=== PATIENT | male | born 1970 | race Caucasian/White ===

== ENCOUNTER 2016-08-13 13:30 | Inpatient (IN) | payer OTHER ==
[2016-08-13] MEDS ORDERED: ONDANSETRON 4 MG/2 ML VIAL IVPUSH ONE (13:40)
[2016-08-13] MEDS ORDERED: HYDROmorphone HCL CARPU-JECT 1 MG/1 ML DISP.SYRIN IVPB ONE ×2 (13:40→15:26)
[2016-08-13] MEDS ORDERED: SODIUM CHLORIDE 1,000 ML IV SCH ×3 (13:45→20:00)
--- NOTE | 2016-08-13 13:46 | PDOC ---
History of Present Illness <Melia Squires - Last Filed: 08/13/16 17:37> - General History Source: Patient Exam Limitations: No Limitations - History of Present Illness Travel History: No Initial Comments: 08/13/16 13:42 45 y/o male with abdominal pain for 2 weeks, getting worse. Denies fall, trauma or fever. No dysuria. Patient has had diverticulitis in the past and has been hospitalized for this. He started taking Cipro and Flagyl about 10 days ago, and does not feel better. He complains of nausea, but no vomiting. No SOB or hest pain. No back pain. Timing/Duration: reports: constant, getting worse Abdominal Pain Onset Location: reports: LLQ (d) Pain Radiation: reports: no radiation <Gurwinder Haro - Last Filed: 08/13/16 17:41> - General Chief Complaint: Nausea Stated Complaint: ABDOMINAL PAIN WITH NAUSEA Time Seen by Provider: 08/13/16 13:36 Past History <Melia Squires - Last Filed: 08/13/16 17:37> - Past Medical History GI Disorders: Yes (GERD/DIVERTICULITIS) HTN: Yes - Surgical History Appendectomy: Yes Neurologic Surgery: Yes ([facility] FOR 21 DAYS STARTING 01/25/15) - Psycho/Social/Smoking Cessation Hx Anxiety: No Suicidal Ideation: No Smoking Status: Yes Smoking History: Current every day smoker Have you smoked in the past 12 months: Yes Number of Cigarettes Smoked Daily: 2 If you are a former smoker, when did you quit?: JAN 2015 'Breaking Loose' booklet given: 07/23/14 Hx Alcohol Use: No Drug/Substance Use Hx: No Substance Use Type: None Hx Substance Use Treatment: No <Gurwinder Haro - Last Filed: 08/13/16 17:41> - Past Medical History Allergies/Adverse Reactions: Allergies Allergy/AdvReac Type Severity Reaction Status Date / Time No Known Allergies Allergy Verified 08/13/16 13:43 Home Medications: Ambulatory Orders Omeprazole [Prilosec (RX)] 40 mg PO DAILY 03/12/15 Metronidazole [Flagyl] 500 mg PO Q8H #9 tablet 06/07/15 Atomoxetine HCl [Strattera] 60 mg PO DAILY 08/13/16 Ciprofloxacin HCl [Cipro] 500 mg PO DAILY 08/13/16 Gabapentin 800 mg PO HS 08/13/16 Metoprolol Tartrate [Lopressor -] 25 mg PO BID 08/13/16 Review of Systems - Review of Systems Able to Perform ROS?: Yes Is the patient limited French proficient: No Constitutional: No: Chills, Fever, Malaise HEENTM: No: Throat Pain Respiratory: No: Cough, Shortness of Breath Cardiac (ROS): No: Chest Pain, Edema, Palpitations ABD/GI: Yes: Abdominal Distended, Nausea. No: Diarrhea, Vomiting : No: Dysuria Musculoskeletal: No: Back Pain Integumentary: No: Bruising All Other Systems: Reviewed and Negative <Gurwinder Haro - Last Filed: 08/13/16 17:41> *Physical Exam - Vital Signs Last Vital Signs Temp Pulse Resp BP Pulse Ox 98.9 F 73 16 114/80 96 08/13/16 13:31 08/13/16 13:31 08/13/16 13:31 08/13/16 13:31 08/13/16 13:31 <Melia Squires - Last Filed: 08/13/16 17:37> - Physical Exam General Appearance: Yes: Nourished, Appropriately Dressed. No: Apparent Distress HEENT: positive: EOMI, KIRIT, Normal ENT Inspection Neck: positive: Trachea midline, Normal Thyroid, Supple. negative: Tender, Rigid Respiratory/Chest: positive: Lungs Clear, Normal Breath Sounds. negative: Chest Tender, Respiratory Distress, Accessory Muscle Use Cardiovascular: positive: Regular Rhythm, Regular Rate, S1, S2. negative: Edema , JVD Vascular Pulses: Femoral (R): 4+, Femoral (L): 4+, Carotid (R): 4+, Carotid (L) : 4+, Dorsalis-Pedis (R): 4+, Doralis-Pedis (L): 4+ Gastrointestinal/Abdominal: positive: Normal Bowel Sounds, Tender (tenerness in LLQ, no RLQ or mid epigastric tenderness, +BS, no RUQ or LUQ tenderness, no pulsatile mass), Flat, Soft. negative: Organomegaly, Pulsatile Mass, Spleenomegaly Lymphatic: negative: Adenopathy, Tenderness, Other Musculoskeletal: positive: Normal Inspection. 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 NML intact, Fully Oriented, Alert, Normal Mood/ Affect, Normal Response, Motor Strength 5/5 <Gurwinder Haro - Last Filed: 08/13/16 17:41> ED Treatment Course - LABORATORY CBC & Chemistry Diagram: 08/13/16 14:10 08/13/16 14:10 - ADDITIONAL ORDERS Additional order review: Laboratory Results 08/13/16 08/13/16 15:15 14:10 Sodium 131 L Potassium 4.1 Chloride 105 Carbon Dioxide 22 Anion Gap 4 L BUN 11 D Creatinine 1.0 Creat Clearance w eGFR > 60 Random Glucose 105 Calcium 9.1 Total Bilirubin 0.4 D AST 34 D ALT 59 H D Alkaline Phosphatase 49 Total Protein 6.6 Albumin 4.1 D Lipase 30 Urine Color Yellow Urine Appearance Clear Urine pH 5.5 Ur Specific [place] 1.020 Urine Protein Negative Urine Glucose (UA) Negative Urine Ketones Negative Urine Blood Negative Urine Nitrite Negative Urine Bilirubin Negative Urine Urobilinogen 0.2 e.u/dl Ur Leukocyte Esterase Negative 08/13/16 14:10 RBC 5.26 MCV 91.3 MCHC 33.7 RDW 11.8 L MPV 7.7 Neutrophils % 56.0 Lymphocytes % 27.1 D Monocytes % 10.4 H Eosinophils % 5.3 H Basophils % 1.2 - RADIOLOGY Radiograph Interpretation: 08/13/16 16:52 CT/ ABDOMEN AND PELVIS CT WITH CONTRAST Reported by: Dr. Joni Simental Reviewed by: Dr. Gurwinder Haro Impression: The current exam demonstrates mild concentric wall thickening within the mid sigmoid colon which could be on the basis of chronic diverticular disease versus mild subtle residual or recurrent diverticulitis. In comparison to a previous CT exam of 06/02/2015 there has been interval resolution of prominent sigmoid wall edema due to acute diverticulitis with associated resolution of pericolonic edema and fluid. - Medications Given in the ED: ED Medications Discontinued Medications Generic Name Dose Route Start Last Admin Trade Name Freq PRN Reason Stop Dose Admin Hydromorphone HCl 1 mg 08/13/16 13:40 08/13/16 14:15 Dilaudid Injection - IVPB 08/13/16 13:41 1 mg ONCE ONE Administration Hydromorphone HCl 1 mg 08/13/16 15:26 08/13/16 15:29 Dilaudid Injection - IVPB 08/13/16 15:27 1 mg ONCE ONE Administration Ondansetron HCl 4 mg 08/13/16 13:40 08/13/16 14:10 Zofran Injection IVPUSH 08/13/16 13:41 4 mg ONCE ONE Administration <Melia Squires - Last Filed: 08/13/16 17:37> - LABORATORY CBC & Chemistry Diagram: 08/13/16 14:10 08/13/16 14:10 - RADIOLOGY Radiology Studies Ordered: Category Date Time Status ABDOMEN & PELVIS CT WITH CONTR [CT] Stat CT Scan 08/13/16 13:40 Ordered <uGrwinder Haro - Last Filed: 08/13/16 17:41> Progress Note - Progress Note Progress Note: Abdominall pain for 2 weeks, failing on antibiotics. Will check labs. CT abdomen/pelvis <Gurwinder Haro - Last Filed: 08/13/16 17:41> Medical Decision Making - Medical Decision Making 08/13/16 17:[address] Kim Awad at [phone]. yardage caller physician Dr. Ame Landaverde consulted. Admitting to Hospitalist Service. 08/13/16 17:35 Called placed to hospitalist, Dr. Cheri Melgoza. Admitting under the Hospitalist Service for diverticulitis. <Melia Squires - Last Filed: 08/13/16 17:37> *DC/Admit/Observation/Transfer <Melia Squires - Last Filed: 08/13/16 17:37> - Discharge Dispostion Admit: Yes <Gurwinder Haro - Last Filed: 08/13/16 17:41> Diagnosis at time of Disposition: Diverticulitis of intestine Qualifiers: Diverticulitis site: unspecified part of intestinal tract Diverticulitis bleeding: without bleeding Diverticulitis complication: without perforation or abscess Qualified Code(s): K57.92 - Diverticulitis of intestine, part unspecified, without perforation or abscess without bleeding - Discharge Dispostion Condition at time of disposition: Good
[2016-08-13] MEDS ORDERED: ONDANSETRON 4 MG/2 ML VIAL ONE (13:54)
[2016-08-13] MEDS ORDERED: HYDROmorphone HCL CARPU-JECT 2 MG/1 ML DISP.SYRIN ONE ×2 (13:54→18:23)
[2016-08-13 14:26] LABS: BASOPHIL 1.2 % (0-2.0); EOSINOPHIL 5.3 % (0-4.5); MCH 30.8 pg (25.7-33.7); MCHC 33.7 g/dl (32.0-35.9); MEAN CELL VOLUME 91.3 fl (80-96); MEAN PLT VOLUME 7.7 fl (7.5-11.1); PLATELET COUNT 223 K/MM3 (134-434); RDW 11.8 % (11.9-15.9); WHITE BLOOD COUNT 5.8 K/mm3 (4.0-10.0)
[2016-08-13 14:56] LABS: ALBUMIN 4.1 g/dl (3.5-5.0); ALK PHOS 49 U/L (32-92); ANION GAP 4 (8-16); BILIRUBIN,TOTAL 0.4 mg/dl (0.2-1.0); CALCIUM 9.1 mg/dl (8.4-10.2); CO2 22 mmol/L (22-28); GLUCOSE,RANDOM 105 mg/dl (74-106); SGOT/AST 34 U/L (10-42); SGPT/ALT 59 U/L (10-40); TOT PROT 6.6 g/dl (6.4-8.3)
[2016-08-13 15:25] LABS: PH,URINE 5.5 (4.5-8); URINE APPEARANCE Clear; URINE BILIRUBIN Negative (NEGATIVE); URINE BLOOD Negative (NEGATIVE); URINE COLOR YELLOW; URINE GLUCOSE (UA) Negative (NEGATIVE); URINE KETONE Negative (NEGATIVE); URINE LEUK ESTERASE Negative (NEGATIVE); URINE NITRITE Negative (NEGATIVE); URINE PROTEIN Negative (NEGATIVE); URINE UROBILINOGEN 0.2 E.U/dl (0.2-1.0)
[2016-08-13] MEDS ORDERED: METRONIDAZOLE 500 MG PREMIXED 100 ML IVPB ONE ×2 (16:57→17:09)
[2016-08-13] MEDS ORDERED: LEVOFLOXACIN 750 MG IVPB 150 ML IVPB ONE (16:57)
[2016-08-13] MEDS ORDERED: PANTOPRAZOLE SODIUM 40 MG in SODIUM CHLORIDE 100 ML IVPB STA (18:06)
[2016-08-13] MEDS ORDERED: PANTOPRAZOLE SODIUM 40 MG VIAL ONE (18:09)
[2016-08-13] MEDS: HYDROmorphone HCL CARPU-JECT 1 MG/1 ML DISP.SYRIN IVPUSH PRN ×2 (18:25→23:05)
[2016-08-13] MEDS ORDERED: ONDANSETRON 4 MG/2 ML VIAL IVPB PRN (19:51)
[2016-08-13] MEDS ORDERED: ACETAMINOPHEN 325 MG TABLET (FP) PO PRN (19:52)
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
[2016-08-13] MEDS ORDERED: morphine CARPU-JECT 2 MG/1 ML DISP.SYRIN IVPB PRN (21:21)
[2016-08-13 21:22] VITALS: BMI 30.4
[2016-08-13] MEDS ORDERED: NORTRIPTYLINE HCL 25 MG CAPSULE PO SCH (22:00)
[2016-08-13] MEDS ORDERED: GABAPENTIN 400 MG CAPSULE (FP) PO SCH (22:00)
[2016-08-13] MEDS: HEPARIN NA (PORCINE) 5,000 UNITS/ML 1ML VIAL SQ SCH (22:53)
[2016-08-13] MEDS: METOPROLOL TARTRATE 25 MG TABLET (FP) PO SCH (22:54)
[2016-08-14] MEDS: METRONIDAZOLE 500 MG PREMIXED 100 ML IVPB SCH ×3 (01:33→17:06)
[2016-08-14] MEDS ORDERED: METRONIDAZOLE 500 MG PREMIXED 100 ML IVPB SCH (02:00)
[2016-08-14] MEDS: HEPARIN NA (PORCINE) 5,000 UNITS/ML 1ML VIAL SQ SCH (06:22)
--- NOTE | 2016-08-14 08:59 | PN ---
Physical Exam: SUBJECTIVE: Patient seen and examined OBJECTIVE: Vital Signs Period Temp Pulse Resp BP Sys/Martinez Pulse Ox Last 24 Hr 97.8 F-98.6 F 64-69 16-20 117-120/76-84 97-98 GENERAL: The patient is awake, alert, and fully oriented, in no acute distress. HEAD: Normal with no signs of trauma. EYES: PERRL, extraocular movements intact, sclera anicteric, conjunctiva clear. No ptosis. ENT: Ears normal, nares patent, oropharynx clear without exudates, moist mucous membranes. NECK: Trachea midline, full range of motion, supple. LUNGS: Breath sounds equal, clear to auscultation bilaterally, no wheezes, no crackles, no accessory muscle use. HEART: Regular rate and rhythm, S1, S2 without murmur, rub or gallop. ABDOMEN: Soft, nontender, nondistended, normoactive bowel sounds, no guarding, no rebound, no hepatosplenomegaly, no masses. EXTREMITIES: 2+ pulses, warm, well-perfused, no edema. NEUROLOGICAL: Cranial nerves II through XII grossly intact. Normal speech, gait not observed. PSYCH: Normal mood, normal affect. SKIN: Warm, dry, normal turgor, no rashes or lesions noted Laboratory Results - last 24 hr 08/14/16 08:00 Sodium Cancelled Potassium Cancelled Chloride Cancelled Carbon Dioxide Cancelled Anion Gap Cancelled BUN Cancelled Creatinine Cancelled Creat Clearance w eGFR Cancelled Random Glucose Cancelled Calcium Cancelled Total Bilirubin Cancelled AST Cancelled ALT Cancelled Alkaline Phosphatase Cancelled Total Protein Cancelled Albumin Cancelled Active Medications Generic Name Dose Route Start Last Admin Trade Name Shaheed PRN Reason Stop Dose Admin Acetaminophen 650 mg 08/13/16 19:52 Tylenol - PO Q4H PRN FEVER OR PAIN Gabapentin 800 mg 08/13/16 22:00 08/13/16 22:54 Neurontin - PO 800 mg HS CLARI Administration Hydromorphone HCl 1 mg 08/13/16 17:34 08/13/16 23:05 Dilaudid Injection - IVPUSH 1 mg Q4H PRN Administration PAIN Sodium Chloride 1,000 mls @ 125 mls/hr 08/13/16 17:45 08/13/16 18:00 Normal Saline - IV 125 mls/hr ASDIR CLARI Administration Metronidazole 100 mls @ 100 mls/hr 08/14/16 02:00 08/14/16 01:33 Flagyl 500mg Premixed Ivpb - IVPB 100 mls/hr Q8H-IV CLARI Administration Levofloxacin 150 mls @ 150 mls/hr 08/14/16 10:00 Levaquin 750 Mg Premixed Ivpb - IVPB DAILY CLARI Metoprolol Tartrate 25 mg 08/13/16 22:00 08/13/16 22:54 Lopressor - PO 25 mg BID CLARI Administration Morphine Sulfate 1 mg 08/13/16 21:21 Morphine Injection - IVPB Q6H PRN PAIN Non-Formulary Medication 60 mg 08/14/16 10:00 Atomoxetine Hcl [Strattera] PO DAILY CLARI Nortriptyline HCl 75 mg 08/13/16 22:00 08/13/16 22:54 Pamelor - PO 75 mg HS CLARI Administration Ondansetron HCl 4 mg 08/13/16 19:51 Zofran Injection IVPB Q4H PRN NAUSEA AND/OR VOMITING Pantoprazole Sodium 40 mg 08/14/16 10:00 Protonix 40mg Ivpb (Pre-Docked) IVPB DAILY CLARI ASSESSMENT/PLAN:
[2016-08-14] MEDS: METOPROLOL TARTRATE 25 MG TABLET (FP) PO SCH (09:09)
[2016-08-14 09:12] LABS: BASOPHIL 0.5 % (0-2.0); MCH 31.2 pg (25.7-33.7); MCHC 34.4 g/dl (32.0-35.9); MEAN CELL VOLUME 90.6 fl (80-96); NEUTROPHILS 48.1 % (42.8-82.8); PLATELET COUNT 197 K/MM3 (134-434); RDW 11.7 % (11.9-15.9); WHITE BLOOD COUNT 3.8 K/mm3 (4.0-10.0)
[2016-08-14] MEDS ORDERED: PANTOPRAZOLE SODIUM 40 MG/100 ML PRE-DOCKED IVPB SCH (10:00)
[2016-08-14] MEDS ORDERED: LEVOFLOXACIN 750 MG IVPB 150 ML IVPB SCH (10:00)
[2016-08-14] MEDS ORDERED: ATOMOXETINE HCL 60 MG PO SCH (10:00)
[2016-08-14] MEDS ORDERED: PANTOPRAZOLE SODIUM 40 MG in SODIUM CHLORIDE 100 ML IVPB SCH (10:00)
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
--- NOTE | 2016-08-14 10:08 | PN ---
Progress Note (short form) - Note Progress Note: Patient seen and consult dictated. Patient with probable low grade sigmoid diverticulitis which has responded to initial PO and current IV antibiotics. Tolerating PO liquids and denies abdominal pain. +BM No fever/chills. Would slowly advance diet and switch to PO antibiotics. If stable, can discharge home with outpatient followup.
[2016-08-14 11:13] LABS: ALBUMIN 3.6 g/dl (3.5-5.0); ALK PHOS 37 U/L (32-92); ANION GAP 5 (8-16); BILIRUBIN,TOTAL 0.5 mg/dl (0.2-1.0); CALCIUM 8.3 mg/dl (8.4-10.2); CO2 24 mmol/L (22-28); COCKROFT - GAULT 124.62; GLUCOSE,RANDOM 88 mg/dl (74-106); SGOT/AST 29 U/L (10-42); SGPT/ALT 51 U/L (10-40); TOT PROT 5.6 g/dl (6.4-8.3)
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
[2016-08-14] MEDS ORDERED: LACTOBACILLUS ACIDOPHILUS 1 EACH TAB (FP) PO SCH (11:30)
[2016-08-14 14:51] VITALS: BP 119/73; PULSE 84; TEMP 98.9
== END 2016-08-14 18:10 | disposition home or self-care (01) | DRG 244 ==
LOC: SUPCPDRO 13:30 → FER 13:30 → FM/S 18:40
PROVIDERS: ADMIT Internal Medicine; ATTEND Nurse Practitioner Family
DX: K57.32 Diverticulitis of large intestine without perforation or abscess without bleeding (principal); K21.9 Gastro-esophageal reflux disease without esophagitis; F17.210 Nicotine dependence, cigarettes, uncomplicated; F07.81 Postconcussional syndrome; E87.1 Hypo-osmolality and hyponatremia; R51 Headache; R11.0 Nausea; R74.0 Nonspecific elevation of levels of transaminase and lactic acid dehydrogenase [LDH]; G45.4 Transient global amnesia
CPT/HCPCS: 36415; 74177-TC; 76705-TC; 80053; 81003; 83690; 83930; 85025; 99282-25; J1644

== ENCOUNTER 2016-09-27 15:29 | Emergency (ER) | payer OTHER ==
[2016-09-27] MEDS ORDERED: TETRACAINE 0.5% HCL 0.6ML DROPPER.BOTTLE OS ONE (15:50)
[2016-09-27 15:51] VITALS: BP 123/87; PULSE 78; TEMP 98.7; BMI 31.0
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
== END 2016-09-27 16:06 | disposition home or self-care (01) ==
LOC: FER 15:29
DX: T15.92XA Foreign body on external eye, part unspecified, left eye, initial encounter (principal); W20.8XXA Other cause of strike by thrown, projected or falling object, initial encounter; Y93.89 Activity, other specified; Y92.9 Unspecified place or not applicable; F17.210 Nicotine dependence, cigarettes, uncomplicated; I10 Essential (primary) hypertension; Z87.820 Personal history of traumatic brain injury; K21.9 Gastro-esophageal reflux disease without esophagitis
CPT/HCPCS: 99282-25

== ENCOUNTER 2017-07-05 22:52 | Emergency (ER) | payer OTHER ==
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
[2017-07-05 23:10] VITALS: BP 122/63; PULSE 77; TEMP 98.1; BMI 33.2
[2017-07-05] MEDS ORDERED: diazePAM CARPU-JECT 10 MG/2 ML DISP.SYRIN IM STA (23:15)
[2017-07-05] MEDS ORDERED: diazePAM 5 MG TABLET PO ONE ×2 (23:18→23:47)
[2017-07-05] MEDS ORDERED: KETOROLAC TROMETHAMINE 60 MG/2 ML VIAL ONE (23:47)
[2017-07-05] MEDS ORDERED: KETOROLAC TROMETHAMINE 60 MG/2 ML VIAL IM ONE (23:47)
[2017-07-05] MEDS ORDERED: diazePAM 5 MG TABLET ONE (23:48)
== END 2017-07-06 00:11 | disposition home or self-care (01) ==
LOC: FER 22:52
PROC: 3E0233Z Introduction of Anti-inflammatory into Muscle, Percutaneous Approach (ICD-10-PCS; principal; 2017-07-05)
DX: M54.5 Low back pain (principal); G89.29 Other chronic pain; F17.210 Nicotine dependence, cigarettes, uncomplicated; I10 Essential (primary) hypertension; K21.9 Gastro-esophageal reflux disease without esophagitis
CPT/HCPCS: 99282-25

== ENCOUNTER 2017-10-19 07:02 | Emergency (ER) | payer OTHER ==
[2017-10-19 07:18] VITALS: TEMP 98; BMI 31.7
--- NOTE | 2017-10-19 07:36 | PDOC ---
Attending Attestation - Resident Resident Name: Vickey Bennett - ED Attending Attestation I have performed the following: I have examined & evaluated the patient, The case was reviewed & discussed with the resident, I agree w/resident's findings & plan, Exceptions are as noted - HPI HPI: 10/19/17 07:34 46y M hx of recurrent diverticulitis presents with recently discharged from the hosptial yeserday presents with recurrent abdominal pain today. Pt states he was better but not 100% at discharge, was tolerating alot of different types of food, but notes the pain came back after he went home. The pt endorses an pisode of nbnb vomiting w/o f/c. +bm at home on exam pt in no distress, mild LLQ tendernss w/o rebound/guarding. no distension/tympany will obtain blood work flat and upright abd xray to r/o obstruction abd exam seems improved compraed to my previous exam during previous admission will celeste stevens regarding dispo morphine for pain fluids, zofran for symptmatomatic relief - Physicial Exam PE: 10/20/17 07:30 see above - Medical Decision Making 10/19/17 11:12 labs reviewed - unremarkable abd xray reviewed - no signs of obstruction case dw dr. Stevens by Dr. Bennett - recommend pain mangement and if feeling better can fu with him as an outpatient. pt was feeling better, abd was soft minimal LLQ tenderness no rebound/guarding feels comfortable going home and fu with dr. Stevens as an outpatient return precutions were discussed I discussed the physical exam findings, ancillary test results and final diagnoses with the patient. I answered all of the patient's questions. The patient was satisfied with the care received and felt comfortable with the discharge plan and treatment plan. The patient will call their primary care physician within 24 hours to arrange follow-up and will return to the Emergency Department with any new, persistent or worsening symptoms.
[2017-10-19] MEDS ORDERED: HYDROmorphone HCL CARPU-JECT 2 MG/1 ML DISP.SYRIN IVPUSH ONE (07:40)
[2017-10-19] MEDS ORDERED: SODIUM CHLORIDE 1,000 ML IV STA (07:40)
[2017-10-19] MEDS ORDERED: HYDROmorphone HCL CARPU-JECT 1 MG/1 ML DISP.SYRIN IVPUSH ONE (07:42)
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
[2017-10-19] MEDS ORDERED: morphine CARPU-JECT 10 MG/1 ML DISP.SYRIN IVPUSH ONE (07:57)
[2017-10-19] MEDS ORDERED: MORPHINE SULFATE 10 MG/1 ML *VIAL ONE (08:07)
[2017-10-19 08:36] LABS: HEMOGLOBIN 16.1 GM/dL (11.7-16.9); MCHC 34.3 g/dl (32.0-35.9); MEAN CELL VOLUME 90.2 fl (80-96); MEAN PLT VOLUME 8.4 fl (7.5-11.1); PLATELET COUNT 256 K/MM3 (134-434); RBC 5.21 M/mm3 (4.00-5.60); WHITE BLOOD COUNT 9.6 K/mm3 (4.0-10.0)
[2017-10-19 08:47] LABS: URINE APPEARANCE CLEAR; URINE BILIRUBIN NEGATIVE (<2.0 mg/dL); URINE BLOOD NEGATIVE (NEGATIVE); URINE COLOR AMBER; URINE GLUCOSE (UA) NEGATIVE (NEGATIVE); URINE KETONE NEGATIVE (NEGATIVE); URINE LEUK ESTERASE 1+ (NEGATIVE); URINE NITRITE NEGATIVE (NEGATIVE); URINE PROTEIN NEGATIVE (NEGATIVE); URINE UROBILINOGEN NEGATIVE mg/dL (0.2-1.0)
[2017-10-19 08:53] LABS: EPI CELLS RARE /HPF (FEW); URINE MUCUS MANY
[2017-10-19 08:57] LABS: INR 1.28 (0.82-1.09); PROTHROMBIN TIME (PATIENT) 14.5 SEC (9.7-13.0)
[2017-10-19 09:10] LABS: CHLORIDE 107 mmol/L (98-107); SODIUM 139 mmol/L (136-145)
[2017-10-19 09:34] LABS: ALBUMIN 3.6 g/dl (3.4-5.0); ALK PHOS 59 U/L (45-117); ANION GAP 10 (8-16); BILIRUBIN,TOTAL 0.4 mg/dL (0.2-1.0); BLOOD UREA NITROGEN 7 mg/dL (7-18); CALCIUM 8.8 mg/dL (8.5-10.1); CO2 22 mmol/L (21-32); GLUCOSE,RANDOM 119 mg/dL (74-106); SGOT/AST 58 U/L (15-37); SGPT/ALT 109 U/L (12-78); TOT PROT 7.1 g/dl (6.4-8.2)
[2017-10-19 10:13] VITALS: BP 130/76; PULSE 80
== END 2017-10-19 11:52 | disposition home or self-care (01) ==
LOC: JER 07:02
PROC: 3E0337Z Introduction of Electrolytic and Water Balance Substance into Peripheral Vein, Percutaneous Approach (ICD-10-PCS; principal; 2017-10-19)
PROC: 3E033NZ Introduction of Analgesics, Hypnotics, Sedatives into Peripheral Vein, Percutaneous Approach (ICD-10-PCS; 2017-10-19)
PROC: 3E033NZ Introduction of Analgesics, Hypnotics, Sedatives into Peripheral Vein, Percutaneous Approach (ICD-10-PCS; 2017-10-19)
DX: K57.30 Diverticulosis of large intestine without perforation or abscess without bleeding (principal); K21.9 Gastro-esophageal reflux disease without esophagitis; I10 Essential (primary) hypertension; Z87.820 Personal history of traumatic brain injury
CPT/HCPCS: 36415; 74019-TC-FY; 80053; 81003; 81015; 85027; 85610; 86850; 86900; 86901; 87086; 96361; 96374; 96375; 99283-25; J7030

== ENCOUNTER 2017-12-15 22:59 | Emergency (ER) | payer OTHER ==
[2017-12-15] MEDS ORDERED: KETOROLAC TROMETHAMINE 60 MG/2 ML VIAL IM ONE (23:07)
[2017-12-15] MEDS ORDERED: KETOROLAC TROMETHAMINE 60 MG/2 ML VIAL ONE (23:10)
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
[2017-12-15 23:19] VITALS: BP 121/82; PULSE 78; TEMP 98.9; BMI 31.6
[2017-12-16] MEDS ORDERED: DICYCLOMINE HCL 20 MG TABLET PO ONE (00:09)
[2017-12-16] MEDS ORDERED: MAG HYDROX/AL HYDROX/SIMETH 30 ML UNIT-DOSE CUP PO ONE (00:09)
[2017-12-16] MEDS ORDERED: MAG HYDROX/AL HYDROX/SIMETH 30 ML UNIT-DOSE CUP ONE (00:10)
[2017-12-16] MEDS ORDERED: DICYCLOMINE HCL 10 MG CAPSULE ONE (00:10)
== END 2017-12-16 00:57 | disposition home or self-care (01) ==
LOC: FER 22:59
PROC: 3E0233Z Introduction of Anti-inflammatory into Muscle, Percutaneous Approach (ICD-10-PCS; principal; 2017-12-15)
DX: R14.1 Gas pain (principal); F17.210 Nicotine dependence, cigarettes, uncomplicated; I10 Essential (primary) hypertension; K21.9 Gastro-esophageal reflux disease without esophagitis
CPT/HCPCS: 74176; 99282-25

== ENCOUNTER 2018-02-04 05:41 | Inpatient (IN) | payer OTHER ==
[2018-02-01 10:11] VITALS: BMI 30.8
[2018-02-04] MEDS ORDERED: ERTAPENEM SODIUM 1 GM in DEXTROSE 5%-WATER - 50 ML IVPB ONE (10:00)
[2018-02-04] MEDS ORDERED: ERTAPENEM SODIUM 1 GM in SODIUM CHLORIDE 50 ML IVPB ONE (10:01)
--- NOTE | 2018-02-04 12:00 | HP ---
History & Physical Update - History History: No Change - Physical Physical: No Change - Assessment Assessment: No Change - Plan Plan: No Change (For reversal of Hartmans procedure (colo-colostomy); r/b/t/a's d/w him and informed consent obtained.)
[2018-02-04] MEDS ORDERED: MIDAZOLAM HCL 2 MG/2 ML SINGLE DOSE VIAL ONE ×3 (13:00)
[2018-02-04] MEDS ORDERED: ROCURONIUM BROMIDE 50 MG/5 ML VIAL ONE ×4 (13:00→17:11)
[2018-02-04] MEDS ORDERED: PROPOFOL 20 ML ONE ×3 (13:00→17:24)
[2018-02-04] MEDS ORDERED: fentaNYL CITRATE 250 MCG/5 ML VIAL ONE ×4 (13:00→17:12)
[2018-02-04] MEDS ORDERED: LIDOCAINE HCL/PF 2% SDV 5ML VIAL ONE ×2 (13:01→17:23)
[2018-02-04] MEDS ORDERED: ERTAPENEM SODIUM 1 GM VIAL IVPB ONE (13:47)
[2018-02-04] MEDS ORDERED: DEXAMETHASONE SOD PHOSPHATE 4 MG/1 ML VIAL ONE ×3 (13:52→18:38)
[2018-02-04] MEDS ORDERED: LIDOCAINE HCL 2% 100 MG/5 ML DISP.SYRIN ONE (17:23)
[2018-02-04] MEDS ORDERED: KETAMINE HCL 200 MG/20 ML VIAL ONE (17:25)
[2018-02-04] MEDS ORDERED: GLYCOPYRROLATE 0.2 MG/1 ML VIAL ONE (18:36)
[2018-02-04] MEDS ORDERED: KETOROLAC TROMETHAMINE 30 MG/1 ML VIAL ONE (18:36)
[2018-02-04] MEDS ORDERED: NEOSTIGMINE METHYLSULFATE 0.5 MG/ML - 10 ML MDV ONE (18:37)
--- NOTE | 2018-02-04 19:36 | OP ---
Operative Note - Note: Operative Date: 02/04/18 Pre-Operative Diagnosis: Colostomy s/p perforated diverticulitis Operation: Mayorga's Reversal Post-Operative Diagnosis: Same as Pre-op Surgeon: Farhat Griffin Plaster Form Maker: Leeanne Rubio (Meggan) Anesthesiologist/BULB ASSEMBLER: Roman Morejon Anesthesia: General Estimated Blood Loss (mls): 200 Drains & Tubes with Location: CLARITZA Drains, Volume Out (mls): 300 (gill - clear) Fluid Volume Replaced (mls): 3,000 Operative Report Dictated: Yes
[2018-02-04] MEDS ORDERED: ONDANSETRON 4 MG/2 ML VIAL IVPUSH PRN (19:37)
[2018-02-04] MEDS ORDERED: ACETAMINOPHEN 1000 MG/100 ML VIAL (NON FORMULARY) IVPB ONE (19:37)
[2018-02-04] MEDS ORDERED: PATIENT'S OWN MEDICATION (NON-FORMULARY) (Gabapentin [Gabapentin] 800 MG) PO PRN (19:37)
--- NOTE | 2018-02-04 19:37 | SURG ---
Surgery Bowling Alley Mechanic Note Bowling Alley Mechanic: Leeanne Rubio PA-C Date of Service: 02/04/18 Diagnosis: Colostomy s/p perforated diverticulitis Procedure: Mayorga's reversal I was present for the entirety of the operative procedure. For further detail, please refer to operative report. Visit type - Case Type Case Type: Scheduled - New patient This patient is new to me today: Yes Date on this admission: 02/04/18
[2018-02-04] MEDS ORDERED: HYDROmorphone *PCA* 10MG/50ML DISP.SYRIN PCA ONE (19:45)
[2018-02-04] MEDS: LACTATED RINGERS SOLUTION 1,000 ML/1,000 ML INFUS.BAG IV SCH (19:45)
[2018-02-04] MEDS ORDERED: LACTATED RINGERS SOLUTION 1,000 ML IV SCH (19:45)
[2018-02-04] MEDS ORDERED: ACETAMINOPHEN INJECTION 100 ML IVPB ONE (19:45)
[2018-02-04] MEDS: HYDROmorphone *PCA* 10MG/50ML DISP.SYRIN PCA SCH (19:55)
[2018-02-04] MEDS ORDERED: ONDANSETRON 4 MG/2 ML VIAL ONE (20:12)
[2018-02-04] MEDS ORDERED: PT OWN MED DRAWER 7, Y5N ONE (23:10)
[2018-02-04] MEDS: ALPRAZolam 2 MG TABLET PO SCH (23:38)
[2018-02-04] MEDS: NORTRIPTYLINE HCL 25 MG CAPSULE PO SCH (23:44)
[2018-02-05] MEDS: CEFAZOLIN 2 GM/D5W 2 GM/50 ML ML IVPB SCH ×2 (02:27→09:31)
[2018-02-05] MEDS: LACTATED RINGERS SOLUTION 1,000 ML/1,000 ML INFUS.BAG IV SCH ×3 (06:36→23:35)
[2018-02-05] MEDS: HYDROmorphone *PCA* 10MG/50ML DISP.SYRIN PCA SCH (07:49)
[2018-02-05 07:57] LABS: HEMATOCRIT 39.2 % (35.4-49); HEMOGLOBIN 12.9 GM/dL (11.7-16.9); MCH 29.5 pg (25.7-33.7); MEAN CELL VOLUME 89.5 fl (80-96); MEAN PLT VOLUME 8.1 fl (7.5-11.1); PLATELET COUNT 196 K/MM3 (134-434); RBC 4.38 M/mm3 (4.00-5.60); RDW 13.5 % (11.9-15.9); WHITE BLOOD COUNT 13.2 K/mm3 (4.0-10.0)
--- NOTE | 2018-02-05 08:01 | PROC ---
Procedure Note Procedure: POD#1 Pt with complaints of nausea/that resolved. No CP or SOB. Feels hungry. Vital Signs Period Temp Pulse Resp BP Sys/Martinez Pulse Ox Last 24 Hr 98.2 F-99.8 F 64-110 10-20 113-134/64-87 95-100 GEN: A&0x3, NAD ABD: soft, non-distended, inc tenderness LE: no calf tendneress or swelling noted A/P: 47 yo male s/p Lysis of adhesion/hartmans reversal, POD#1 OOB to chair/ambulate NPO/IV hydration
--- NOTE | 2018-02-05 08:07 | PN ---
Progress Note (short form) - Note Progress Note: POD#1 PT with complaints of nausea last pm/resolved now and feels hungry. No CP/SOB. Pain at a 6/10. Vital Signs Period Temp Pulse Resp BP Sys/Martinez Pulse Ox Last 24 Hr 98.2 F-99.8 F 64-110 10-20 113-134/64-87 95-100 gill-750ml clear/yellow urine CLARITZA-40ml serosangrenous GEN: A&0x3, NAD ABD: soft, non-distended, inc tenderness. Midline dressing changed today/ packing removed clean granulation tissue. fascia intact. ostomy site-clean. repacked with wet to dry dressing. LE: no calf tenderness or swelling noted b/l A/P: 47 yo male s/p lysis of adhesion/hartmans continue npo/iv hydration oob and ambulate lovenox for DVT ppx cbc/chem pending Will add IV tylenol x 24 hours for pain control inaddition to [employer]TER discontinue gill /3 D/w. Dr. Griffin
[2018-02-05] MEDS ORDERED: ACETAMINOPHEN 1000 MG/100 ML VIAL (NON FORMULARY) IVPB SCH (08:15)
[2018-02-05 08:32] LABS: ANION GAP 12 MMOL/L (8-16); BLOOD UREA NITROGEN 13 mg/dL (7-18); CALCIUM 8.5 mg/dL (8.5-10.1); CHLORIDE 105 mmol/L (98-107); CO2 24 mmol/L (21-32); GLUCOSE,RANDOM 130 mg/dL (74-106); POTASSIUM 4.1 mmol/L (3.5-5.1); SODIUM 141 mmol/L (136-145)
[2018-02-05] MEDS: ACETAMINOPHEN 1000 MG/100 ML VIAL (NON FORMULARY) IVPB SCH ×2 (08:51→17:19)
[2018-02-05] MEDS ORDERED: ESCITALOPRAM OXALATE 10 MG TABLET (FP) ONE (09:27)
[2018-02-05] MEDS: ESCITALOPRAM OXALATE 20 MG TABLET (FP) PO SCH (09:31)
[2018-02-05] MEDS: ENOXAPARIN NA (PORCINE) 40 MG/0.4 ML DISP.SYRIN SQ SCH (09:31)
[2018-02-05] MEDS: PANTOPRAZOLE 40 MG TABLET (FP) PO SCH (09:31)
[2018-02-05] MEDS: chlorproMAZINE HCL 25 MG TABLET PO SCH ×2 (09:32→21:32)
--- NOTE | 2018-02-05 11:28 | PN ---
Progress Note, Physician Chief Complaint: s/p reversal of marcy's under general anesthesia History of Present Illness: post op day one with associate material handler for pain control - Current Medication List Current Medications: Active Medications Acetaminophen (Ofirmev Injection -) 1,000 mg IVPB Q8H [facility] Stop: 02/06/18 00:46 Last Admin: 02/05/18 08:51 Dose: 1,000 mg Alprazolam (Xanax -) 2 mg PO HS [facility] Last Admin: 02/04/18 23:38 Dose: 2 mg Chlorpromazine HCl (Thorazine -) 50 mg PO BID [facility] Last Admin: 02/05/18 09:32 Dose: 50 mg Enoxaparin Sodium (Lovenox -) 40 mg SQ DAILY [facility] Last Admin: 02/05/18 09:31 Dose: 40 mg Escitalopram Oxalate (Lexapro -) 20 mg PO DAILY [facility] Last Admin: 02/05/18 09:31 Dose: 20 mg Hydromorphone HCl (Dilaudid Production Weigher -) 0 mg TRAVEL REGISTERED NURSE PACU TRAVEL REGISTERED NURSE PACU [facility]; Protocol Stop: 02/11/18 19:37 Last Admin: 02/05/18 07:49 Dose: Not Given Lactated Ringer's (Lactated Ringers Solution) 1,000 ml in 1,000 mls @ 125 mls/ hr IV ASDIR [facility] Last Admin: 02/05/18 06:36 Dose: 125 mls/hr Non-Formulary Medication (Gabapentin [Gabapentin]) 800 mg PO PRN PRN PRN Reason: PAIN Nortriptyline HCl (Pamelor -) 75 mg PO HS [facility] Last Admin: 02/04/18 23:44 Dose: Not Given Pantoprazole Sodium (Protonix -) 40 mg PO DAILY [facility] Last Admin: 02/05/18 09:31 Dose: 40 mg - Objective Vital Signs: Vital Signs Temperature 99.8 F H 02/05/18 06:00 Pulse Rate 84 02/05/18 06:00 Respiratory Rate 18 02/05/18 06:00 Blood Pressure 122/64 02/05/18 06:00 O2 Sat by Pulse Oximetry (%) 95 02/04/18 22:39 Constitutional: Yes: Well Nourished Cardiovascular: Yes: WNL Respiratory: Yes: WNL Gastrointestinal: Yes: WNL Labs: CBC, BMP 02/05/18 07:30 02/05/18 07:30 Assessment/Plan pain controlled, will continue associate material handler until taking po. no adverse anesthetic effects
[2018-02-05] MEDS ORDERED: ONDANSETRON 4 MG/2 ML VIAL IVPUSH PRN (12:02)
[2018-02-05] MEDS ORDERED: HYDROmorphone *PCA* 10MG/50ML DISP.SYRIN PCA SCH (15:25)
[2018-02-05] MEDS ORDERED: PT OWN MED DRAWER 7, Y5N ONE (21:27)
[2018-02-05] MEDS: ALPRAZolam 2 MG TABLET PO SCH (21:30)
[2018-02-05] MEDS: NORTRIPTYLINE HCL 25 MG CAPSULE PO SCH (21:31)
[2018-02-06] MEDS: ACETAMINOPHEN 1000 MG/100 ML VIAL (NON FORMULARY) IVPB SCH (00:36)
[2018-02-06 08:00] LABS: BASO % 0.2 % (0-2.0); EOS % 0.6 % (0-4.5); HEMATOCRIT 36.9 % (35.4-49); HEMOGLOBIN 12.5 GM/dL (11.7-16.9); MCH 30.2 pg (25.7-33.7); MCHC 33.8 g/dl (32.0-35.9); MEAN CELL VOLUME 89.4 fl (80-96); MEAN PLT VOLUME 8.2 fl (7.5-11.1); MONO % 6.8 % (3.8-10.2); NEUT % 77.4 % (42.8-82.8); PLATELET COUNT 141 K/MM3 (134-434); RBC 4.12 M/mm3 (4.00-5.60); RDW 13.8 % (11.9-15.9); WHITE BLOOD COUNT 8.1 K/mm3 (4.0-10.0)
[2018-02-06] MEDS: LACTATED RINGERS SOLUTION 1,000 ML/1,000 ML INFUS.BAG IV SCH ×2 (08:22→15:40)
[2018-02-06 08:30] LABS: ANION GAP 10 MMOL/L (8-16); BLOOD UREA NITROGEN 11 mg/dL (7-18); CALCIUM 8.2 mg/dL (8.5-10.1); CHLORIDE 104 mmol/L (98-107); CO2 25 mmol/L (21-32); CREATININE 0.8 mg/dL (0.55-1.3); GLUCOSE,RANDOM 76 mg/dL (74-106); POTASSIUM 3.9 mmol/L (3.5-5.1); SODIUM 139 mmol/L (136-145)
--- NOTE | 2018-02-06 09:02 | PN ---
Progress Note (short form) - Note Progress Note: 47M s/p Mayorga's reversal POD #2, pt seen and examined at bedside. Pt states that abd pain is controlled with TRANSPORTATION AIDE. Pt ambulating limited due to pain but did get out of bed twice. Pt denies BM or passing flatus. Pt admits some nausea, but no vomiting. Denies fever/chills. Last Vital Signs Temp Pulse Resp BP Pulse Ox 99.3 F 112 H 20 139/83 97 02/06/18 05:43 02/06/18 05:43 02/06/18 05:43 02/06/18 05:43 02/05/18 21:00 CBC, BMP 02/06/18 06:30 02/06/18 06:30 PE: Gen: A&O x3 Resp: breathing comfortably Abd: soft, nondistended, moderate tenderness with palpation. Incision is clean with no erythema or discharge. Drain has serosanguinous drainage. Output: 100ml Ext: no edema Problem List - Problems (1) Status post Evgeny procedure Assessment/Plan: Plan -Encourage OOB/ambulate, discussed importance for ambulating to encourage bowel function -DVT ppx -incentive spirometry -try to wean off TRANSPORTATION AIDE Will discuss with Dr. Griffin Code(s): Z93.3 - COLOSTOMY STATUS
[2018-02-06] MEDS ORDERED: ESCITALOPRAM OXALATE 10 MG TABLET (FP) ONE (10:23)
--- NOTE | 2018-02-06 10:32 | PN ---
Progress Note (short form) - Note Progress Note: Anesthesia [employer] round. S/P Mayorga's reversal POD #2, pt seen and examined. Comfortably in the bed, awake but not alert. States being sleepy and not clear in his head. Has been OOB x2. Pain better controlled now. While in bed pain 1-2/10, while walking 3-4/10. taking po meds with sips of water. VSS. A/P: Pat is mostly sedated by IVPCA, risk for fall. Is able to take po meds. D/ C the [employer] and continue with PO analgetics. Signed off.
[2018-02-06] MEDS: PANTOPRAZOLE 40 MG TABLET (FP) PO SCH (10:42)
[2018-02-06] MEDS: ENOXAPARIN NA (PORCINE) 40 MG/0.4 ML DISP.SYRIN SQ SCH (10:42)
[2018-02-06] MEDS: ESCITALOPRAM OXALATE 20 MG TABLET (FP) PO SCH (10:42)
[2018-02-06] MEDS: chlorproMAZINE HCL 25 MG TABLET PO SCH ×2 (10:43→21:19)
[2018-02-06] MEDS: ACETAMINOPHEN 1000 MG/100 ML VIAL (NON FORMULARY) IVPB PRN ×2 (15:46→22:41)
--- NOTE | 2018-02-06 18:27 | PATH ---
Surgical Pathology Report Patient Name: CHRISTINE WITT [facility]. Rec. #: [id number] /Age/Gender: 1970 (Age: 47) / M Account: [id number] Location: [address] [place] [address]/[facility] Taken: 02/04/2018 Received: 02/05/2018 Reported: 02/06/2018 Physicians: Farhat Griffin MD Specimen(s) Received A: SCAR TISSUE FROM ABDOMEN B: COLOSTOMY STOMA Clinical History Status post perforated diverticulosis Final Diagnosis A. ABDOMEN, SKIN, SCAR, EXCISION: SKIN WITH DERMAL FIBROSIS CONSISTENT WITH SCAR. B. COLOSTOMY, REVERSAL OF CASILLAS PROCEDURE: ENTEROCUTANEOUS FISTULA/COLOSTOMY WITH MILD CHRONIC INFLAMMATION AND REACTIVE CHANGES. Electronically Signed Miesha Rhodes M.D. Gross Description A. Received in formalin labeled "scar tissue from abdomen" is an ellipse of skin which measures 15 x 1.5 cm, excised to a depth of 2 cm. There is a linear scar on the surface of the skin. Courtesy Driver sections are submitted in one cassette. B. Received in formalin labeled "colostomy" is a segment of bowel with surrounding adipose tissue which measures 5 x 4 cm and attached skin (5 x 2.5 cm), consistent with colostomy. No lesions are identified. Courtesy Driver sections are submitted in one cassette. MLIvánZ/02/05/2018 stevie/02/05/2018
[2018-02-06] MEDS: HYDROmorphone HCl 2 MG/ML VIAL IVPB PRN (19:12)
[2018-02-06] MEDS ORDERED: PT OWN MED DRAWER 7, Y5N ONE (21:02)
[2018-02-06] MEDS: ALPRAZolam 2 MG TABLET PO SCH (21:18)
[2018-02-06] MEDS: NORTRIPTYLINE HCL 25 MG CAPSULE PO SCH (21:21)
[2018-02-07] MEDS: LACTATED RINGERS SOLUTION 1,000 ML/1,000 ML INFUS.BAG IV SCH ×3 (01:16→20:00)
[2018-02-07] MEDS: HYDROmorphone HCl 2 MG/ML VIAL IVPB PRN ×4 (03:02→21:46)
[2018-02-07] MEDS: ACETAMINOPHEN 1000 MG/100 ML VIAL (NON FORMULARY) IVPB PRN ×2 (07:53→18:37)
[2018-02-07] MEDS ORDERED: ESCITALOPRAM OXALATE 10 MG TABLET (FP) ONE (08:29)
[2018-02-07 08:47] LABS: ANION GAP 11 MMOL/L (8-16); BLOOD UREA NITROGEN 10 mg/dL (7-18); CALCIUM 8.1 mg/dL (8.5-10.1); CHLORIDE 103 mmol/L (98-107); CO2 23 mmol/L (21-32); CREATININE 0.7 mg/dL (0.55-1.3); GLUCOSE,RANDOM 64 mg/dL (74-106); POTASSIUM 3.8 mmol/L (3.5-5.1); SODIUM 138 mmol/L (136-145)
[2018-02-07] MEDS: ENOXAPARIN NA (PORCINE) 40 MG/0.4 ML DISP.SYRIN SQ SCH (09:50)
[2018-02-07] MEDS: chlorproMAZINE HCL 25 MG TABLET PO SCH ×2 (09:50→21:49)
[2018-02-07] MEDS: PANTOPRAZOLE 40 MG TABLET (FP) PO SCH (09:50)
[2018-02-07] MEDS: ESCITALOPRAM OXALATE 20 MG TABLET (FP) PO SCH (09:50)
--- NOTE | 2018-02-07 10:37 | PN ---
Progress Note (short form) - Note Progress Note: Attending Surgeon POD#3 Seen in f/u; tolerating post op pain w/o DRESSED POULTRY GRADER and prn IV analgesics; passed flatus and liquid BM. VSS AF abdo-soft; non tender; drain serosanguinous; dressing in place and to be changed lytes normal UO good IMP: doing well PLAN: OOB; clear liquid diet; pulmonary toilet; wound care. Farhat Griffin MD FACS
--- NOTE | 2018-02-07 13:00 | OP ---
DATE OF OPERATION: 02/04/2018 PREOPERATIVE DIAGNOSIS: Status post Evgeny procedure for perforated sigmoid diverticulitis. POSTOPERATIVE DIAGNOSIS: Status post Evgeny procedure for perforated sigmoid diverticulitis. PROCEDURE: Rigid sigmoidoscopy and examination under anesthesia and reversal of Evgeny procedure (colocolostomy). SURGEON: Farhat Griffin MD FLIGHT TEST ENGINEER: ENEDINA Matthews ANESTHESIA: General. OPERATIVE FINDINGS: There was a rectal stump approximately 18- to 20-cm in length from the anal verge. There was a functioning colostomy. There were adhesions from previous surgery. The rest of the findings were unremarkable. DESCRIPTION OF PROCEDURE: The patient was placed on the operating room table in supine position. After the induction of general anesthesia, timeout was taken, and rigid sigmoidoscopy was carried out, and the previously noted findings were observed. The patient was placed in the dorsal lithotomy position with legs in Sundar stirrups appropriately padded, and Gomez catheter was placed without incident. The abdomen was prepped with ChloraPrep and the area around the colostomy was isolated with a Tegaderm dressing. Incision was made with a scalpel through the previous scar which was excised and consisted of skin and subcutaneous fat. The peritoneal cavity was then entered under direct vision in an area way from previous scarring, and the previously noted findings were observed. Using electrocautery and scissor dissection, adhesions were taken down. Small bowel was mobilized from the pelvis using blunt and sharp dissection, and the rectal stump identified. Next, the small bowel was packed off in the right and left upper quadrant, and attention was turned to the area of the colostomy where the Tegaderm was removed, and an incision mapped out on the skin to excise the colostomy. Incision was made with the scalpel and taken down through skin and subcutaneous tissue, and the colostomy mobilized through the abdominal wall. Next, a point of transection proximal to the skin was identified, and the pursestring suture placed there and fired. The redundant skin, colostomy, and portion of the colostomy within the abdominal wall was then excised and sent for pathological examination. The proximal colon was opened and incised using the EEA stapler sizers, and it was decided that a 25-mm anastomosis would be adequate. The anvil was placed in the proximal colon and the pursestring suture tied. The colon was further mobilized along the lateral peritoneal reflection and the splenic flexure mobilized and taken down using the LigaSure device. The distal transverse colon was similarly mobilized to gain further length. Once adequate length without tension was achieved, the 25-mm EEA stapling device was placed through the rectum, and the stapler opened and the pin brought through the anterior wall of the distal rectal stump. The anvil was then connected to this and the stapler closed and fired. The stapler was then removed creating the end-to-end anastomosis. The pelvis was subsequently filled with normal saline and air insufflated to the rectum using a bulb syringe without evidence of bubbles coming from the area of the anastomosis. All irrigating fluid was suctioned out, and hemostasis checked for and noted to be good. The peritoneal cavity was then again copiously irrigated and hemostasis verified, and a 10-mm Ulysses Bonner drain was placed into the pelvis through a separate stab wound in the abdominal wall. The drain was secured to the skin with 2-0 silk suture. Hemostasis was once again verified, and then the old colostomy site closed from within with 0 Prolene [id number] sutures and anteriorly with 0 Prolene [id number] sutures as well. The midline incision was closed with continuous 0 looped Maxon and the skin and subcutaneous tissue irrigated with normal saline. The skin around the umbilicus was reapproximated with surgical beck. The remainder of the wound was packed with one-inch Iodoform gauze and covered with dry sterile dressings. The drain was connected to bulb self- suction and the procedure terminated at this point, and the patient aroused from general anesthesia and transferred to the post anesthesia care unit in stable condition awake and alert. ESTIMATED BLOOD LOSS: 200 mL. REPLACEMENTS: Crystalloid. DRAINS: One 10-mm Ulysses Bonner. SPECIMENS: Old colostomy site and skin scar to Pathology. I, Farhat Griffin, was physically present in the operating room from the time the patient was placed on the operating room table until he was transferred to the post anesthesia care unit in my accompaniment. MD GUY Collins/[id number] MTDD
[2018-02-07] MEDS ORDERED: PT OWN MED DRAWER 7, Y5N ONE (21:41)
[2018-02-07] MEDS: ALPRAZolam 2 MG TABLET PO SCH (21:47)
[2018-02-07] MEDS: NORTRIPTYLINE HCL 25 MG CAPSULE PO SCH (21:49)
[2018-02-08] MEDS: HYDROmorphone HCl 2 MG/ML VIAL IVPB PRN ×3 (06:09→19:19)
--- NOTE | 2018-02-08 07:51 | PN ---
Progress Note (short form) - Note Progress Note: POD #4 Alert. Resting in position of comfort. PHYSICIAN LIAISON dc'd yesterday and adequate pain control via prn meds. Started on clears yesterday and tolerated well. States he had a soft bm last night. He is oob and ambulating unassisted. Voiding spontaneously. Denies n/v/f/c, CP or SOB. Last Vital Signs Temp Pulse Resp BP Pulse Ox 98.5 F 114 H 20 120/80 95 02/08/18 05:59 02/08/18 05:59 02/08/18 05:59 02/08/18 05:59 02/07/18 21:00 Gen: nad ABD: + bowel sounds in all quadrants. LLQ transverse open incision--> deep fascia intact. Wound is clean/pink Midline incision open with few beck (for umbilical approximation). Deep fascia intact. Wound is clean/pink LE: SCDs bilat. Soft. NT. Problem List - Problems (1) Status post Evgeny procedure Assessment/Plan: POD #4 s/p Mayorga Reversal. Doing well. Cont oob and ambulate Pulmonary toileting Regular diet. CLARITZA dc'd on rounds VNS ordered for wound care 1. midline incision & LLQ incision 2. Pack both with moist kerlix and cover with ABD pad/tape daily Dressing changed on rounds. DC planning 02/09/18 Code(s): Z93.3 - COLOSTOMY STATUS
[2018-02-08] MEDS ORDERED: ESCITALOPRAM OXALATE 10 MG TABLET (FP) ONE (09:48)
[2018-02-08] MEDS: PANTOPRAZOLE 40 MG TABLET (FP) PO SCH (10:07)
[2018-02-08] MEDS: ENOXAPARIN NA (PORCINE) 40 MG/0.4 ML DISP.SYRIN SQ SCH (10:07)
[2018-02-08] MEDS: chlorproMAZINE HCL 25 MG TABLET PO SCH ×2 (10:07→21:29)
[2018-02-08] MEDS: ESCITALOPRAM OXALATE 20 MG TABLET (FP) PO SCH (10:07)
[2018-02-08] MEDS: ACETAMINOPHEN 1000 MG/100 ML VIAL (NON FORMULARY) IVPB PRN ×2 (15:26→21:28)
[2018-02-08] MEDS: LACTATED RINGERS SOLUTION 1,000 ML/1,000 ML INFUS.BAG IV SCH ×2 (16:03→21:30)
[2018-02-08] MEDS ORDERED: PT OWN MED DRAWER 7, Y5N ONE (21:25)
[2018-02-08] MEDS: ALPRAZolam 2 MG TABLET PO SCH (21:28)
[2018-02-08] MEDS: NORTRIPTYLINE HCL 25 MG CAPSULE PO SCH (21:29)
[2018-02-09] MEDS: HYDROmorphone HCl 2 MG/ML VIAL IVPB PRN ×3 (02:58→18:20)
[2018-02-09] MEDS: ACETAMINOPHEN 1000 MG/100 ML VIAL (NON FORMULARY) IVPB PRN ×2 (07:00→21:24)
[2018-02-09] MEDS ORDERED: ESCITALOPRAM OXALATE 10 MG TABLET (FP) ONE (09:23)
[2018-02-09] MEDS ORDERED: PT OWN MED DRAWER 7, Y5N ONE ×2 (09:24→20:50)
[2018-02-09] MEDS: ENOXAPARIN NA (PORCINE) 40 MG/0.4 ML DISP.SYRIN SQ SCH (09:26)
[2018-02-09] MEDS: chlorproMAZINE HCL 25 MG TABLET PO SCH ×2 (09:27→21:23)
[2018-02-09] MEDS: PANTOPRAZOLE 40 MG TABLET (FP) PO SCH (09:27)
[2018-02-09] MEDS: ESCITALOPRAM OXALATE 20 MG TABLET (FP) PO SCH (09:27)
--- NOTE | 2018-02-09 10:48 | HP ---
CHIEF COMPLAINT:none; admitted for colo-colostomy (reversal of Hartmans procedure ) PCP:n/a HISTORY OF PRESENT ILLNESS:s/p Hartmans procedure for recurrent diverticultis w/ abscess formation and microperforation # months ago. Recent Travel:none PAST MEDICAL HISTORY:head injury PAST SURGICAL HISTORY:as above Social History: Smoking:none Alcohol:none Drugs: none Family History:no contributory Allergies: none No Known Allergies Allergy (Verified 10/19/17 07:15) HOME MEDICATIONS: Home Medications Medication Instructions Recorded Omeprazole 40 mg PO DAILY 12/15/17 Acetaminophen W/ Codeine #3 1 tab PO ASDIR PRN 02/01/18 [Tylenol # 3 -] Alprazolam [Xanax] 2 mg PO HS 02/01/18 Chlorpromazine [Thorazine -] 50 mg PO BID 02/01/18 Escitalopram Oxalate [Lexapro -] 20 mg PO DAILY 02/01/18 Gabapentin 800 mg PO PRN PRN 02/01/18 Nortriptyline HCl [Pamelor] 75 mg PO HS 02/01/18 Docusate Sodium [Colace] 100 mg PO TID #21 capsule 02/08/18 oxyCODONE HCL [Roxicodone -] 5 mg PO Q4H PRN #30 tablet MDD 6 02/08/18 PHYSICAL EXAMINATION Vital Signs - 24 hr 02/08/18 02/08/18 02/08/18 14:00 21:00 22:00 Temperature 98.7 F 98.5 F Pulse Rate 118 H 108 H Respiratory 20 20 20 Rate Blood Pressure 129/44 L 126/84 O2 Sat by Pulse 96 Oximetry (%) 02/09/18 02/09/18 06:00 08:00 Temperature 98.6 F 98.2 F Pulse Rate 104 H 98 H Respiratory 16 Rate Blood Pressure 119/78 127/80 O2 Sat by Pulse Oximetry (%) GENERAL: Awake, alert, and fully oriented, in no acute distress. HEAD: Normal with no signs of trauma. EYES: Pupils equal, round and reactive to light, extraocular movements intact, sclera anicteric, conjunctiva clear. No lid lag. ABDOMEN: Soft, nontender, not distended, normoactive bowel sounds, no guarding, no rebound, no masses. No hepatomegaly or splenomegaly. Midline wound open and healing well and colostomy site as well.Doing well POD# MUSCULOSKELETAL: Normal range of motion at all joints. No bony deformities or tenderness. No CVA tenderness. UPPER EXTREMITIES: 2+ pulses, warm, well-perfused. No cyanosis. No clubbing. No peripheral edema. LOWER EXTREMITIES: 2+ pulses, warm, well-perfused. No calf tenderness. No peripheral edema. NEUROLOGICAL: Cranial nerves II-XII intact. Normal speech. Normal gait. PSYCHIATRIC: Cooperative. Good eye contact. Appropriate mood and affect. SKIN: Warm, dry, normal turgor, no rashes or lesions noted, normal capillary refill. ASSESSMENT/PLAN: Doing well POD#5 tolerating a diet and moving his bowels s/p colocolostomy and stable for discharge home to office f/u next week. Farhat Griffin MD FACS Visit type - Emergency Visit Emergency Visit: No - New Patient This patient is new to me today: No - Critical Care Critical Care patient: No
--- NOTE | 2018-02-09 10:52 | DS ---
Physical Exam: SUBJECTIVE: Patient seen and examined POD#5 s/p colocolostomy; tolerating regular diet and moving his bowels. OBJECTIVE: Vital Signs Period Temp Pulse Resp BP Sys/Martinez Pulse Ox Last 24 Hr 98.2 F-98.7 F 98-118 16-20 119-129/44-84 96 PHYSICAL EXAM ABDOMEN: Soft, nontender, nondistended, normoactive bowel sounds, no guarding, no rebound, no hepatosplenomegaly, no masses.Midline wound and colostomy sites open and healing well by secondary intention. EXTREMITIES: 2+ pulses, warm, well-perfused, no edema. NEUROLOGICAL: Cranial nerves II through XII grossly intact. Normal speech, gait not observed. PSYCH: Normal mood, normal affect. SKIN: Warm, dry, normal turgor, no rashes or lesions noted. LABS HOSPITAL COURSE: Date of Admission:02/04/18; colo-colostomy ( reversal of Hartmans procedure ). Date of Discharge: 02/09/18 IMP/PLAN: doing well s/p colocolostomy; d/c home to office f/u next week. Farhat Griffin MD FACS Minutes to complete discharge: 10 Discharge Summary Reason For Visit: SP PERFORATED DIVERTICULOSIS Condition: Stable - Instructions Diet, Activity, Other Instructions: Dr. Griffin Discharge Instructions Dear CHRISTINE WITT, Post Operative Instructions Physical activity Resume your normal everyday activity as tolerated no heavy lifting or exercise until seen by your surgeon. You may walk unlimited amounts of and climb stairs. You may resume driving the car when you feel safe and comfortable behind the wheel. Wound care If you have a bandage, leave it on, and keep dry for 48 - 72 hours. After that time discard the outer bandage. If there are tapes on the skin under the outer bandage, leave them in place. They will peel off in the next 7 to 10 days. Do Not peel them off. You may shower 2 days after surgery. If there are tapes present on the skin, they can get wet. Diet There are no dietary restrictions. Eat healthy, high-fiber foods. Drink 6 to 8 glasses of liquid each day. This will assist in keeping your bowels are regular. Pain management You may take Tylenol or acetaminophen or Ibuprofen (for example, Motrin, Advil etc.) Any pain prescription medication ordered should be taken as prescribed for moderate to severe pain. Call Dr. Griffin for any of the following: Severe pain not relieved by medication Fever of 101 or higher Excessive bleeding or drainage on dressing Inability to urinate Call the office at [phone] for a post operative appointment in 7 - 10 days. Disposition: HOME - Home Medications Comprehensive Discharge Medication List: Ambulatory Orders Omeprazole 40 mg PO DAILY 12/15/17 Acetaminophen W/ Codeine #3 [Tylenol # 3 -] 1 tab PO ASDIR PRN 02/01/18 Alprazolam [Xanax] 2 mg PO HS 02/01/18 Chlorpromazine [Thorazine -] 50 mg PO BID 02/01/18 Escitalopram Oxalate [Lexapro -] 20 mg PO DAILY 02/01/18 Gabapentin 800 mg PO PRN PRN 02/01/18 Nortriptyline HCl [Pamelor] 75 mg PO HS 02/01/18 Docusate Sodium [Colace] 100 mg PO TID #21 capsule 02/08/18 oxyCODONE HCL [Roxicodone -] 5 mg PO Q4H PRN #30 tablet MDD 6 02/08/18 This patient is new to me today: No Emergency Visit: No Critical Care patient: No - Discharge Referral Referred to [facility] No
[2018-02-09] MEDS ORDERED: oxyCODONE HCL 5 MG TABLET PO ONE (16:00)
[2018-02-09] MEDS: LACTATED RINGERS SOLUTION 1,000 ML/1,000 ML INFUS.BAG IV SCH (18:15)
[2018-02-09] MEDS: ALPRAZolam 2 MG TABLET PO SCH (21:19)
[2018-02-09] MEDS: NORTRIPTYLINE HCL 25 MG CAPSULE PO SCH (21:21)
[2018-02-10] MEDS: HYDROmorphone HCl 2 MG/ML VIAL IVPB PRN ×4 (02:36→23:47)
[2018-02-10] MEDS: oxyCODONE HCL 5 MG TABLET PO PRN ×3 (07:22→20:43)
[2018-02-10] MEDS ORDERED: PT OWN MED DRAWER 7, Y5N ONE ×2 (09:31→20:34)
[2018-02-10] MEDS ORDERED: ESCITALOPRAM OXALATE 10 MG TABLET (FP) ONE (09:31)
[2018-02-10] MEDS: ENOXAPARIN NA (PORCINE) 40 MG/0.4 ML DISP.SYRIN SQ SCH (09:35)
[2018-02-10] MEDS: PANTOPRAZOLE 40 MG TABLET (FP) PO SCH (09:35)
[2018-02-10] MEDS: ESCITALOPRAM OXALATE 20 MG TABLET (FP) PO SCH (09:36)
[2018-02-10] MEDS: chlorproMAZINE HCL 25 MG TABLET PO SCH ×2 (09:37→21:41)
--- NOTE | 2018-02-10 10:42 | PN ---
Progress Note (short form) - Note Progress Note: Attending Surgeon POD#6 No c/o ; did not go home yesterday because services were not properly arranged by homecare for wound care at home w/VNS Tolerating diet and moving his bowels abdo-soft; wound granulating IMP: doing well PLAN: OOB; wound care; discharge planning for tomorrow once all services are in place. Farhat Griffin MD FACS
[2018-02-10] MEDS ORDERED: LACTATED RINGERS SOLUTION 1,000 ML/1,000 ML INFUS.BAG IV SCH (10:43)
[2018-02-10] MEDS: NORTRIPTYLINE HCL 25 MG CAPSULE PO SCH (21:42)
[2018-02-10] MEDS: ALPRAZolam 2 MG TABLET PO SCH (21:43)
[2018-02-10 23:48] VITALS: BP 130/86; PULSE 105; TEMP 99.5
[2018-02-11] MEDS ORDERED: ESCITALOPRAM OXALATE 10 MG TABLET (FP) ONE (09:22)
[2018-02-11] MEDS ORDERED: PT OWN MED DRAWER 7, Y5N ONE (09:24)
[2018-02-11] MEDS: chlorproMAZINE HCL 25 MG TABLET PO SCH (09:26)
[2018-02-11] MEDS: oxyCODONE HCL 5 MG TABLET PO PRN (09:26)
[2018-02-11] MEDS: PANTOPRAZOLE 40 MG TABLET (FP) PO SCH (09:27)
[2018-02-11] MEDS: ESCITALOPRAM OXALATE 20 MG TABLET (FP) PO SCH (09:27)
[2018-02-11] MEDS: ENOXAPARIN NA (PORCINE) 40 MG/0.4 ML DISP.SYRIN SQ SCH (09:27)
--- NOTE | 2018-02-11 10:16 | PN ---
Progress Note (short form) - Note Progress Note: Surgery POD #7 Hartmans reversal, patient seen and examined at bedside with no new complaints. Patient states his pain is controlled. He has been OOB ambulating, tolerating his diet and moving his bowels and voiding. He denies any fever, chills, CP, SOB, N/V. Finalizing VNS plan for d/c today. Vital Signs Temp 99.5 F 02/10/18 18:00 Pulse 105 H 02/10/18 18:00 Resp 20 02/10/18 21:00 BP 130/86 02/10/18 18:00 Pulse Ox 98 02/10/18 21:00 Intake & Output 02/10/18 02/10/18 02/11/18 11:59 23:59 11:59 Intake Total 1550 1350 650 Output Total 1400 400 Balance 1550 -50 250 Intake: IV 1500 650 600 LACTATED RINGERS SOLUTION 1500 450 1,000 ml In 1,000 ml @ 125 mls/hr IV ASDIR CLARI Rx#:[id number] LACTATED RINGERS SOLUTION 200 600 1,000 ml In 1,000 ml @ 50 mls/hr IV ASDIR CLARI Rx #:[id number] IVPB 50 50 Oral 700 Output: Urine 1400 400 Void 1400 400 Other: Voiding Method Urinal Toilet # Unmeasured Voids Void 2 Bowel Movement No No # Bowel Movements 1 PE: A&Ox3, NAD unlabored resp on RA abd:-obese, soft; wounds granulating with no active d/c, clean margins, surrounding tissue intact with no tracking erythema or signs of infection. Moving all extremities without limitation Problem List - Problems (1) Status post Evgeny procedure Assessment/Plan: POD #7 doing well 1) Plan for D/c home today with VNS as discussed 2) encourage home daily IS 3) follow up with Dr Griffin as out patient Code(s): Z93.3 - COLOSTOMY STATUS
== END 2018-02-11 11:58 | disposition home health service (06) | DRG 221 ==
LOC: JSAMEDAYSX 05:41 → J6S 22:12
PROVIDERS: ADMIT Surgery; ATTEND Surgery
PROC: 0DNW0ZZ Release Peritoneum, Open Approach (ICD-10-PCS; 2018-02-04)
PROC: 0D1M0ZN Bypass Descending Colon to Sigmoid Colon, Open Approach (ICD-10-PCS; 2018-02-04)
PROC: 0DJD8ZZ Inspection of Lower Intestinal Tract, Via Natural or Artificial Opening Endoscopic (ICD-10-PCS; 2018-02-04)
PROC: 0DSN0ZZ Reposition Sigmoid Colon, Open Approach (ICD-10-PCS; principal; 2018-02-04 11:30)
DX: Z43.3 Encounter for attention to colostomy (principal); K21.9 Gastro-esophageal reflux disease without esophagitis; K66.0 Peritoneal adhesions (postprocedural) (postinfection)
CPT/HCPCS: 36415; 80048; 85025; 85027; 86850; 86900; 86901; 88304-TC; 94010; 94760; J0131

== ENCOUNTER 2018-02-17 10:04 | Emergency (ER) | payer OTHER ==
[2018-02-17 10:10] VITALS: TEMP 97.9; BMI 30.8
--- NOTE | 2018-02-17 10:48 | PDOC ---
Attending Attestation - Resident Resident Name: Manuel Duncan - HPI HPI: 02/17/18 12:40 Pt presents to the ED complaining of increased pain and purulent discharge from his abdominal wounds. patient had a recent colostomy reversal on 02/04---skin at that time was left open. patient is tolerating small amounts of food without vomiting and is having bowel movements. Wound drainage was minimal during his admission, but over the last few days at home patient has been having copious foul smelling drainage. also complains of subjective fever today. 02/17/18 13:33 - Physicial Exam PE: 02/17/18 13:37 Agree with resident exam. PAteint is alert and oriented in no acute distress. Lungs are clear. Heart has regular rate and rhythm without murmurs rubs or gallops. No CVA tenderness. + LUQ and LLQ tenderness without guarding or rebound. - Medical Decision Making 02/17/18 13:39 Pt presents to the ED complaining of increased purlent drainage from his abdominal wounds after colostomy reversal with skin left open. + subjective fever, although he is afebrile in the ED. No signs of obstruction or illeus. Concern for skin infection, less likely intrabdominal infection or sepsis. Will give pain control and check labs. Case discussed with Dr. Griffin who will come to the bedside to evaluate the patient.
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
[2018-02-17] MEDS ORDERED: HYDROmorphone HCL CARPU-JECT 2 MG/1 ML DISP.SYRIN IVPUSH ONE (11:23)
[2018-02-17] MEDS ORDERED: SODIUM CHLORIDE 1,000 ML IV STA (11:24)
[2018-02-17] MEDS ORDERED: ONDANSETRON 4 MG/2 ML VIAL IVPUSH ONE (11:24)
[2018-02-17 12:35] LABS: BASO % 0.8 % (0-2.0); EOS % 2.1 % (0-4.5); HEMATOCRIT 41.5 % (35.4-49); HEMOGLOBIN 14.2 GM/dL (11.7-16.9); LYMPH % 19.8 % (8-40); MCH 29.9 pg (25.7-33.7); MCHC 34.1 g/dl (32.0-35.9); MEAN CELL VOLUME 87.7 fl (80-96); MEAN PLT VOLUME 7.4 fl (7.5-11.1); MONO % 9.5 % (3.8-10.2); NEUT % 67.8 % (42.8-82.8); PLATELET COUNT 493 K/MM3 (134-434); RBC 4.73 M/mm3 (4.00-5.60); RDW 13.4 % (11.9-15.9); WHITE BLOOD COUNT 8.4 K/mm3 (4.0-10.0)
[2018-02-17 12:37] LABS: VENOUS PC02 51.6 mmHg (38-52); VENOUS PH 7.36 (7.32-7.42); VENOUS PO2 23.4 mmHg (28-48)
[2018-02-17] MEDS ORDERED: HYDROmorphone HCl 2 MG/ML VIAL ONE (12:43)
[2018-02-17] MEDS ORDERED: ONDANSETRON 4 MG/2 ML VIAL ONE (12:43)
[2018-02-17 13:07] LABS: ALBUMIN 3.4 g/dl (3.4-5.0); ALK PHOS 66 U/L (45-117); ANION GAP 8 MMOL/L (8-16); BILIRUBIN,TOTAL 0.3 mg/dL (0.2-1); BLOOD UREA NITROGEN 13 mg/dL (7-18); CALCIUM 9.3 mg/dL (8.5-10.1); CHLORIDE 106 mmol/L (98-107); CO2 28 mmol/L (21-32); GLUCOSE,RANDOM 96 mg/dL (74-106); POTASSIUM 4.5 mmol/L (3.5-5.1); SGOT/AST 18 U/L (15-37); SGPT/ALT 38 U/L (13-61); SODIUM 142 mmol/L (136-145); TOT PROT 7.5 g/dl (6.4-8.2)
[2018-02-17 13:11] LABS: INR 1.14 (0.83-1.09); PROTHROMBIN TIME (PATIENT) 13.5 SEC (9.7-13.0)
[2018-02-17 13:13] LABS: ACTIVATED PTT 33.1 SECONDS (25.2-36.5)
[2018-02-17 13:38] LABS: URINE APPEARANCE CLEAR; URINE BILIRUBIN NEGATIVE (<2.0 mg/dL); URINE COLOR YELLOW; URINE GLUCOSE (UA) NEGATIVE (NEGATIVE); URINE KETONE NEGATIVE (NEGATIVE); URINE LEUK ESTERASE NEGATIVE (NEGATIVE); URINE NITRITE NEGATIVE (NEGATIVE); URINE PROTEIN NEGATIVE (NEGATIVE); URINE UROBILINOGEN NEGATIVE mg/dL (0.2-1.0)
[2018-02-17] MEDS ORDERED: ACETAMINOPHEN 1000 MG/100 ML VIAL (NON FORMULARY) IVPB ONE (14:06)
[2018-02-17] MEDS ORDERED: ACETAMINOPHEN INJECTION 100 ML IVPB ONE (14:43)
[2018-02-17 15:15] VITALS: BP 128/67; PULSE 79
--- NOTE | 2018-02-18 10:29 | EKG ---
Test Reason : Blood Pressure : / mmHG Vent. Rate : 083 BPM Atrial Rate : 083 BPM P-R Int : 182 ms QRS Dur : 090 ms QT Int : 368 ms P-R-T Axes : 001 040 032 degrees QTc Int : 432 ms NORMAL SINUS RHYTHM EARLY REPOLARIZATION NORMAL ECG WHEN COMPARED WITH ECG OF 24-OCT-2017 10:40, NO SIGNIFICANT CHANGE WAS FOUND Confirmed by LENARD GUZMAN MD ([id number]) on 02/18/2018 10:29:02 AM Referred By: Confirmed By:LENARD GUZMAN MD
== END 2018-02-17 15:15 | disposition home or self-care (01) ==
LOC: JER 10:04
PROC: 3E033NZ Introduction of Analgesics, Hypnotics, Sedatives into Peripheral Vein, Percutaneous Approach (ICD-10-PCS; principal; 2018-02-17)
PROC: 3E033NZ Introduction of Analgesics, Hypnotics, Sedatives into Peripheral Vein, Percutaneous Approach (ICD-10-PCS; 2018-02-17)
PROC: 3E033GC Introduction of Other Therapeutic Substance into Peripheral Vein, Percutaneous Approach (ICD-10-PCS; 2018-02-17)
DX: R10.9 Unspecified abdominal pain (principal); G89.18 Other acute postprocedural pain; Z93.3 Colostomy status; K57.20 Diverticulitis of large intestine with perforation and abscess without bleeding; I10 Essential (primary) hypertension; K21.9 Gastro-esophageal reflux disease without esophagitis
CPT/HCPCS: 36415; 71045-TC-FY; 80053; 81003; 82803; 83605; 84484; 85025; 85610; 85730; 87040; 87070; 87077; 87086; 87186; 87205; 93005; 93010; 96374; 96375; 99282-25; J0131; J7030

== ENCOUNTER 2018-05-05 21:18 | Emergency (ER) | payer OTHER ==
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
[2018-05-05 21:29] VITALS: BMI 31.0
[2018-05-05] MEDS ORDERED: SODIUM CHLORIDE 0.9% 1000 ML INFUS.BAG IV ONE (21:34)
[2018-05-05] MEDS ORDERED: METOCLOPRAMIDE HCL INJECTION 10 MG/2 ML VIAL IVPB ONE (21:34)
[2018-05-05] MEDS ORDERED: ACETAMINOPHEN 1000 MG/100 ML VIAL (NON FORMULARY) IVPB ONE (21:34)
[2018-05-05] MEDS ORDERED: ONDANSETRON 4 MG/2 ML VIAL IVPUSH ONE (21:34)
[2018-05-05] MEDS ORDERED: ONDANSETRON 4 MG/2 ML VIAL ONE (21:43)
[2018-05-05] MEDS ORDERED: ACETAMINOPHEN INJECTION 100 ML IVPB ONE (21:43)
[2018-05-05] MEDS ORDERED: METOCLOPRAMIDE HCL INJECTION 10 MG/2 ML VIAL ONE (21:43)
[2018-05-05 22:12] LABS: BASO % 0.4 % (0-2.0); EOS % 4.2 % (0-4.5); HEMATOCRIT 38.8 % (35.4-49); LYMPH % 29.6 % (8-40); MCH 29.4 pg (25.7-33.7); MCHC 33.6 g/dl (32.0-35.9); MEAN CELL VOLUME 87.6 fl (80-96); MEAN PLT VOLUME 8.3 fl (7.5-11.1); NEUT % 49.8 % (42.8-82.8); PLATELET COUNT 228 K/MM3 (134-434); RBC 4.43 M/mm3 (4.00-5.60); RDW 13.1 % (11.9-15.9); WHITE BLOOD COUNT 4.5 K/mm3 (4.0-10.8)
[2018-05-05 22:17] LABS: ALBUMIN 3.7 g/dl (3.5-5.0); ALK PHOS 70 U/L (32-92); ANION GAP 9 MMOL/L (8-16); BILIRUBIN,TOTAL 0.3 mg/dl (0.2-1.0); BLOOD UREA NITROGEN 8 mg/dl (7-18); CALCIUM 8.8 mg/dl (8.4-10.2); CHLORIDE 106 mmol/L (98-107); CO2 23 mmol/L (22-28); GLUCOSE,RANDOM 146 mg/dl (74-106); SGOT/AST 41 U/L (10-42); SGPT/ALT 63 U/L (10-40); SODIUM 138 mmol/L (136-145); TOT PROT 6.7 g/dl (6.4-8.3)
[2018-05-05] MEDS ORDERED: HYDROmorphone HCL CARPU-JECT 1 MG/1 ML DISP.SYRIN IVPUSH ONE (22:30)
[2018-05-05] MEDS ORDERED: HYDROmorphone HCL CARPU-JECT 1 MG/1 ML DISP.SYRIN ONE (22:42)
[2018-05-06 01:19] VITALS: BP 127/83; PULSE 78; TEMP 98.7
== END 2018-05-06 01:36 | disposition home or self-care (01) ==
LOC: FER 21:18
PROC: 3E0337Z Introduction of Electrolytic and Water Balance Substance into Peripheral Vein, Percutaneous Approach (ICD-10-PCS; principal; 2018-05-05)
PROC: 3E033NZ Introduction of Analgesics, Hypnotics, Sedatives into Peripheral Vein, Percutaneous Approach (ICD-10-PCS; 2018-05-05)
PROC: 3E033GC Introduction of Other Therapeutic Substance into Peripheral Vein, Percutaneous Approach (ICD-10-PCS; 2018-05-05)
DX: R10.84 Generalized abdominal pain (principal); I10 Essential (primary) hypertension; K21.9 Gastro-esophageal reflux disease without esophagitis; K57.92 Diverticulitis of intestine, part unspecified, without perforation or abscess without bleeding
CPT/HCPCS: 36415; 74177-TC; 80053; 85025; 96374; 96375; 99283-25; J0131; J7030

== ENCOUNTER 2018-08-02 11:49 | Inpatient (IN) | payer OTHER ==
[2018-08-02 11:58] VITALS: BMI 29.5
[2018-08-02] MEDS ORDERED: ASPIRIN 81 MG CHEWABLE TABLETS PO ONE (12:00)
[2018-08-02] MEDS ORDERED: ONDANSETRON 4 MG/2 ML VIAL IVPUSH ONE (12:01)
[2018-08-02] MEDS ORDERED: morphine CARPU-JECT 2 MG/1 ML DISP.SYRIN IVPUSH ONE (12:02)
[2018-08-02] MEDS ORDERED: ASPIRIN 81 MG CHEWABLE TABLETS ONE (12:11)
[2018-08-02] MEDS ORDERED: ONDANSETRON 4 MG/2 ML VIAL ONE (12:11)
[2018-08-02] MEDS ORDERED: MORPHINE SULFATE 2 MG/ML VIAL ONE (12:12)
[2018-08-02 12:17] LABS: BASO % 0.5 % (0-2.0); EOS % 1.4 % (0-4.5); HEMOGLOBIN 14.4 GM/dL (11.7-16.9); LYMPH % 18.9 % (8-40); MCH 29.4 pg (25.7-33.7); MCHC 33.5 g/dl (32.0-35.9); MEAN CELL VOLUME 87.8 fl (80-96); MONO % 6.9 % (3.8-10.2); NEUT % 72.3 % (42.8-82.8); PLATELET COUNT 221 K/MM3 (134-434); RBC 4.89 M/mm3 (4.00-5.60); RDW 15.4 % (11.9-15.9); WHITE BLOOD COUNT 6.8 K/mm3 (4.0-10.0)
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
--- NOTE | 2018-08-02 12:29 | PDOC ---
Attending Attestation - Medical Decision Making 08/02/18 13:[address] Saravia, who admits for Dr. Fernandez Law at 1:05. Case discussed with Dr. Landaverde at 1:16. Call placed with Dr. Davila at 1:16. Not in the office Overhead paged at 1:18pm. 1:36, case discussed with Dr. Olmos. 08/02/18 13:40 Documentation prepared by Saundra Guerin, acting as medical instructor for Jeri Coronel MD. <Saundra Guerin - Last Filed: 08/02/18 13:40> - Resident Resident Name: Vickey Bennett - ED Attending Attestation I have performed the following: I have examined & evaluated the patient, The case was reviewed & discussed with the resident, I agree w/resident's findings & plan, Exceptions are as noted - HPI HPI: 08/02/18 12:27 Mr Nevarez is a 47 yo M h/o complicated diverticulitis, s/p colostomy and colostomy reversal, HTN who presents to the ER with a complaint of chest pain Approximately 1 hour prior to arrival, pt reported sudden onset of chest pain He describes chest pain as pressure, like someone placing a knee in his chest Pain is 10/10 He also has pain in his abdomen (which he likens to his diverticulitis pain) He also has chronic lower back pain No fevers or chills Pt felt nauseous and vomited once No recent travel No prior episodes like this 08/02/18 12:36 08/02/18 12:39 - Physicial Exam PE: 08/02/18 12:41 GENERAL: The patient is in no acute distress. ENT: Ears normal, nares patent, oropharynx clear without exudates. Moist mucous membranes. NECK: Normal range of motion, supple, no nuchal rigidity LUNGS: Breath sounds equal, clear to auscultation bilaterally. No wheezes, and no crackles. HEART: Irregularly irregular, no murmur appreciated, pulses equal in both arms, SBP 150s both arms ABDOMEN: Soft, diffusely tender to palpation (left and right lower abdominal tenderness) EXTREMITIES: Normal range of motion, no edema. NEUROLOGICAL: Cranial nerves II through XII grossly intact. Normal speech. No focal neurological deficits. SKIN: Warm, Dry, normal turgor, no rashes or lesions noted. - Medical Decision Making Pt presents with excruciating chest pain which began 1 hour prior to arrival in the ER No prior episodes like this DD: Cardiac: ACS, Dissection, PE, pericarditis Gastric: gastritis, pancreatitis, gastric/duodenal ulcer, SBO 08/02/18 12:28 EKG - Afib rate of 100 bpm, no ST elevation, t waves upright 08/02/18 12:38 Laboratory Tests 08/02/18 08/02/18 12:08 12:08 WBC 6.8 Hgb 14.4 Hct 43.0 Plt Count 221 D INR 0.96 08/02/18 12:42 Giving: Morphine, Pepcid, Aspirin, SLN, IVF, Zofran Will re assess Repeating EKG 08/02/18 12:52 CXR - No effusion, no consolidation, mediastinum not widened, gastric bubble seen 08/02/18 12:55 Laboratory Tests 08/02/18 12:08 Sodium 137 Potassium 4.1 Chloride 104 Carbon Dioxide 26 BUN 10 Creatinine 1.0 Random Glucose 139 H Total Bilirubin 0.3 AST 49 H ALT 134 H Lipase 113 Repeat EKG: Afib rate of 86 bpm, st segment 1 box elevation V4, V5 CTA ordered Cardiology 08/02/18 13:07 Pt states that dilaudid is the only thing that works for him Dilaudid ordered Trop negative CTA negative for dissection, pe, intra-abdominal pathology Will admit <Jeri Coronel - Last Filed: 08/03/18 14:20>
[2018-08-02] MEDS ORDERED: FAMOTIDINE 20 MG/50 ML IVPB 20 MG/50 ML MG IVPB ONE ×2 (12:35→12:48)
[2018-08-02] MEDS ORDERED: NITROGLYCERIN SUBLINGUAL 1/150 0.4 MG TAB SL ONE (12:35)
[2018-08-02 12:36] LABS: INR 0.96 (0.83-1.09); PROTHROMBIN TIME (PATIENT) 11.3 SEC (9.7-13.0)
[2018-08-02 12:38] LABS: ACTIVATED PTT 32.5 SECONDS (25.2-36.5)
[2018-08-02] MEDS ORDERED: SODIUM CHLORIDE 1,000 ML IV STA (12:42)
[2018-08-02] MEDS ORDERED: NITROGLYCERIN SUBLINGUAL 1/150 0.4 MG TAB ONE (12:47)
[2018-08-02 12:53] LABS: ALBUMIN 4.1 g/dl (3.4-5.0); ALK PHOS 84 U/L (45-117); ANION GAP 7 MMOL/L (8-16); BILIRUBIN,TOTAL 0.3 mg/dL (0.2-1); BLOOD UREA NITROGEN 10 mg/dL (7-18); CALCIUM 9.1 mg/dL (8.5-10.1); CHLORIDE 104 mmol/L (98-107); CHOLESTEROL 162 mg/dL (50-200); CO2 26 mmol/L (21-32); GLUCOSE,RANDOM 139 mg/dL (74-106); HDL CHOLESTEROL 39 mg/dL (40-60); LIPASE 113 U/L (73-393); MAGNESIUM 2.4 mg/dL (1.8-2.4); N-TERMINAL BNP 8.2 pg/ml (5-125); POTASSIUM 4.1 mmol/L (3.5-5.1); SGOT/AST 49 U/L (15-37); SGPT/ALT 134 U/L (13-61); SODIUM 137 mmol/L (136-145); TOT PROT 7.7 g/dl (6.4-8.2); TRIGLYCERIDES 159 mg/dL (0-150)
[2018-08-02] MEDS ORDERED: HYDROmorphone HCL CARPU-JECT 2 MG/1 ML DISP.SYRIN IVPUSH ONE ×2 (13:00→15:37)
[2018-08-02] MEDS ORDERED: HYDROmorphone HCl 2 MG/ML VIAL ONE ×2 (13:38→15:41)
--- NOTE | 2018-08-02 14:15 | CON.CARD ---
Consult Consult Specialty:: Cardiology Referred by:: Dr. Landaverde Reason for Consultation:: chest pain - History of Present Illness Chief Complaint: chest pain History of Present Illness: 47M with h/o diverticulitis s/p bowel resection with reversal of colostomy 2017, traumatic brain injury, hyperlipidemia, GERD presents to ER for one day of severe epigastric pain radiation to back. Pain described as severe pressure, worse with deep inspiration. No associated diaphoresis or dyspnea. Denies recent viral URI or prolonged air/car travel. Denies prior CV hx. no prior MO or coronary artery disease. In ER, found to be in atrial fibrillation with diffuse early repol changes/ J- point elevation. 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 ) Gastrointestinal: Yes: Diverticulitis, GERD Psych: Yes: Depression - Past Surgical History Additional Surgical History: bowel surgery for diverticulitis (5 episodes) - Alcohol/Substance Use Hx Alcohol Use: No History of Substance Use: reports: None - Smoking History Smoking history: Never smoked Have you smoked in the past 12 months: No Aproximately how many cigarettes per day: 2 If you are a former smoker, when did you quit?: JAN 2015 - Social History Usual Living Arrangement: With Spouse History of Recent Travel: No Home Medications - Allergies Allergies/Adverse Reactions: Allergies Allergy/AdvReac Type Severity Reaction Status Date / Time No Known Allergies Allergy Verified 08/02/18 11:58 - Home Medications Home Medications: Ambulatory Orders Omeprazole 40 mg PO DAILY 12/15/17 Acetaminophen W/ Codeine #3 [Tylenol # 3 -] 1 tab PO ASDIR PRN 02/01/18 Alprazolam [Xanax] 2 mg PO HS 02/01/18 Chlorpromazine [Thorazine -] 50 mg PO BID 02/01/18 Escitalopram Oxalate [Lexapro -] 20 mg PO DAILY 02/01/18 Gabapentin 800 mg PO PRN PRN 02/01/18 Nortriptyline HCl [Pamelor] 75 mg PO HS 02/01/18 Docusate Sodium [Colace] 100 mg PO TID #21 capsule 02/08/18 oxyCODONE HCL [Roxicodone -] 5 mg PO Q4H PRN #30 tablet MDD 6 02/08/18 Sulfamethoxazole/Trimethoprim [Bactrim Ds -] 1 tab PO BID #20 tablet 02/20/18 Amoxicillin - [Amoxicillin 500mg Capsule -] 500 mg PO BID #20 capsule 02/21/18 Family Disease History - Family Disease History Family History: Unremarkable (No early CAD) Review of Systems Findings/Remarks: see HPI - Review of Systems Constitutional: reports: No Symptoms Eyes: reports: No Symptoms HENT: reports: No Symptoms Neck: reports: No Symptoms Cardiovascular: reports: Chest Pain (mid lower sternal, actually epigastric) Respiratory: reports: Other (Pleuritic chest tightness) Gastrointestinal: reports: Abdominal Pain Genitourinary: denies: No Symptoms, Burning, Discharge, Dysuria, Flank Pain, Frequency, Hematuria, Incontinence, Lesions, Menses, Pain, Testicular Mass, Testicular Pain, Testicular Swelling, Urgency, Vaginal Bleeding, Other Breasts: denies: No Symptoms Reported, See HPI, Breast Implants, Discharge from Nipple, Lumps, Pain, Skin Changes, Other Musculoskeletal: denies: No Symptoms, Back Pain, Crepitus, Decreased ROM, Extremity Pain, Joint Pain, Joint Swelling, Muscle Pain, Muscle Cramps, Muscle Weakness, Other Integumentary: denies: No Symptoms, Blister, Bruising, Change in Color, Eczema, Erythema, Incision, Lesions, Lump, Pallor, Pruritis, Rash, Wound, Other Neurological: denies: No Symptoms, Change in LOC, Change in Speech, Confusion, Dizziness, Headache, Incoordination, Numbness, Parasthesia, Pre-Existing Deficit , Seizure, Syncope, Tremors, Unsteady Gait, Weakness, Other Endocrine: denies: No Symptoms, Excessive Sweating, Flushing, Increased Hunger, Increased Thirst, Intolerance to Cold, Intolerance to Heat, Unexplained Weight Gain, Unexplained Weight Loss, Other Hematology/Lymphatic: denies: No Symptoms, Easily Bruised, Excessive Bleeding, Swollen Glands, Other Psychiatric: denies: No Symptoms, Altered Sleep Pattern, Anxiety, Depression, Hallucinations, Panic, Paranoia, Suicidal, Other - Risk Factors Known Risk Factors: Yes: Hypercholesterolemia Vital Signs: Vital Signs Temperature 98.2 F 08/02/18 11:56 Pulse Rate 107 H 08/02/18 13:40 Respiratory Rate 22 H 08/02/18 11:56 Blood Pressure 156/88 03/29/19 13:40 O2 Sat by Pulse Oximetry (%) 99 08/02/18 12:30 Constitutional: Yes: Anxious Eyes: Yes: Conjunctiva Clear, EOM Intact HENT: Yes: Atraumatic, Normocephalic Neck: Yes: Supple, Trachea Midline Respiratory: Yes: CTA Bilaterally (no wheezing, rales) Gastrointestinal: Yes: Other (Old surgical incision. Discrete tenderness to palpation right upper quadrant that reproduces his symptoms almost exactly.) Cardiovascular: Yes: Regular Rate and Rhythm JVD: No Carotid Bruit: No PMI: Non-Displaced Heart Sounds: Yes: S1, S2 (RRR, no M/R/G) Musculoskeletal: Yes: WNL Extremities: Yes: WNL Edema: No Peripheral Pulses WNL: Yes Peripheral Pulses: 2+ Left Carotid, 2+ Right Carotid, 2+ Left Femoral, 2+ Right Femoral, 2+ Left Doralis Pedis, 2+ Right Dorsalis Pedis Integumentary: Yes: WNL Neurological: Yes: WNL, Alert, Oriented ...Motor Strength: WNL Psychiatric: Yes: WNL - Other Data Labs, Other Data: CBC, BMP 08/02/18 12:08 08/02/18 12:08 INR, PTT INR 0.96 (0.83-1.09) 08/02/18 12:08 Troponin, BNP 08/02/18 08/02/18 12:08 12:08 Troponin I < 0.02 Cancelled B-Natriuretic Peptide 8.2 Cancelled Troponin, BNP 08/02/18 08/02/18 12:08 12:08 Troponin I < 0.02 Cancelled B-Natriuretic Peptide 8.2 Cancelled Laboratory Tests 08/02/18 12:08 Total Bilirubin 0.3 AST 49 H ALT 134 H Alkaline Phosphatase 84 Triglycerides 159 H Total LDL Cholesterol 106 H Lipase 113 Atrial fibrillation, controlled rate, diffuse early repol/J-point elevation; no regional elevations, no ST depression Echo: Pending Imaging - Results Chest X-ray: Image Reviewed (no aortic enlargement, no infiltrate, no increased PVC) EKG: Image Reviewed Problem List - Problems (1) Abdominal pain Code(s): R10.9 - UNSPECIFIED ABDOMINAL PAIN Qualifiers: Abdominal location: generalized Qualified Code(s): R10.84 - Generalized abdominal pain (2) Transaminitis Code(s): R74.0 - NONSPEC ELEV OF LEVELS OF TRANSAMNS & LACTIC ACID DEHYDRGNSE (3) Abnormal ECG Code(s): R94.31 - ABNORMAL ELECTROCARDIOGRAM [ECG] [EKG] (4) Chest pain Code(s): R07.9 - CHEST PAIN, UNSPECIFIED Qualifiers: Chest pain type: chest pain on breathing Qualified Code(s): R07.1 - Chest pain on breathing; R07.81 - Pleurodynia (5) New onset atrial fibrillation Code(s): I48.91 - UNSPECIFIED ATRIAL FIBRILLATION (6) Diverticulitis Code(s): K57.92 - DVTRCLI OF INTEST, PART UNSP, W/O PERF OR ABSCESS W/O BLEED Assessment/Plan IMP: 1. Acute epigastric pain with radiation to sternum and back, pleuritic component 2. Transaminitis 3. Hypertension, likely chronic 4. Atrial fibrillation, newly diagnosed, of unknown onset 5. History of diverticulitis, surgical resection, reversal colostomy 6. History of traumatic brain injury Current differential dx includes: Acute cholecystitis vs Gastritis/Peptic ulcer disease vs. Mesenteric ischemia vs Pericarditis vs Pulmonary Embolism vs aortic dissection. Pulmonary embolism and aortic dissection less likely. REC: 1. Echocardiogram for EF assessment, r/o pericardial effusion; cycle cardiac enzymes; telemetry. 2. Agree with CTA chest, abdomen and pelvis to r/o PE, aortic pathology 3. As discussed w/ ER attendings Dr. Bennett and Homer, would obtain dedicated imaging of the right upper quadrant (US) to r/o cholecystitis. A bedside US in the ER is planned. Defer GI and possible Surgical consults to ER and PMD. 4. For rate control and control of mild hypertension, can start IV Lopressor Q6h w/ parameters. 5. [id number] score = 1 (+ HTN) is considered low to moderate risk for thromboembolism. Aspirin or full AC would be appropriate. Will hold for now until further diagnostic testing completed to clarify diagnosis.
[2018-08-02] MEDS ORDERED: IBUPROFEN 400 MG TABLET (FP) PO ONE ×3 (15:21→15:36)
--- NOTE | 2018-08-02 15:29 | ECHO ---
Name: CHRISTINE WITT Exam:Adult Echocardiogram Study Date: 08/02/2018 02:47 PM Age: 47 yrs Reason For Study: chest pain Height: 69 in Weight: 200 lb BSA: 2.1 m2 MMode/2D Measurements & Calculations IVSd: 1.2 cm Ao root diam: 3.2 cm LVIDd: 4.3 cm LA dimension: 3.4 cm LVIDs: 2.9 cm LVPWd: 1.2 cm LVPWs: 1.5 cm EDV(Teich): 82.4 ml ESV(Clotilde): 31.7 ml RV S Kaz: 11.9 cm/sec Doppler Measurements & Calculations Ao V2 max: 123.3 cm/sec LV V1 max P.6 mmHg Ao max P.1 mmHg LV V1 mean P.5 mmHg Ao V2 mean: 82.7 cm/sec LV V1 max: 128.5 cm/sec Ao mean P.3 mmHg LV V1 mean: 85.2 cm/sec Ao V2 VTI: 24.0 cm LV V1 VTI: 24.6 cm PA V2 max: 91.2 cm/sec Med Peak E' Kaz: 9.1 cm/sec PA max P.3 mmHg Lat Peak E' Kaz: 19.4 cm/sec Procedure The study was technically difficult with many images being suboptimal in quality. Left Ventricle Left ventricular systolic function is normal. Ejection Fraction = 55-60%. Left Ventricular Filling pa ttern is normal for age. Right Ventricle The right ventricle is normal in size and function. Atria Normal left and right atrial size and function. Mitral Valve The mitral valve is normal in structure and function. There is no mitral valve stenosis. There is tra ce to mild mitral regurgitation. Tricuspid Valve The tricuspid valve is normal in structure and function. There is mild tricuspid regurgitation. Aortic Valve The aortic valve opens well. No hemodynamically significant valvular aortic stenosis. No aortic regur gitation is present. Pulmonic Valve The pulmonic valve is not well seen, but is grossly normal. There is no pulmonic valvular stenosis. T here is no pulmonic valvular regurgitation. Great Vessels The aortic root is normal size. Pericardium/Pleura There is no pericardial effusion. Interpretation Summary The study was technically difficult with many images being suboptimal in quality. Left ventricular systolic function is normal. Ejection Fraction = 55-60%. The right ventricle is normal in size and function. There is trace to mild mitral regurgitation. There is mild tricuspid regurgitation. There is no pericardial effusion. MD Owens *Lola 08/02/2018 03:28 PM
[2018-08-02] MEDS: METOPROLOL TARTRATE 25 MG TABLET (FP) PO SCH ×2 (16:32→22:33)
[2018-08-02] MEDS ORDERED: morphine SULFATE 4 MG/ML VIAL IVPUSH PRN (20:00)
[2018-08-02] MEDS ORDERED: CYCLOBENZAPRINE HCL 10 MG TABLET (FP) PO PRN (20:02)
[2018-08-02] MEDS ORDERED: ONDANSETRON 4 MG/2 ML VIAL IVPUSH PRN (20:04)
[2018-08-02] MEDS ORDERED: DEXTROSE 5%-0.45% SALINE 1,000 ML IV SCH (20:15)
[2018-08-02] MEDS: PANTOPRAZOLE 40 MG TABLET (FP) PO SCH (22:33)
[2018-08-02] MEDS: GABAPENTIN 400 MG CAPSULE (FP) PO SCH (22:34)
[2018-08-02] MEDS: NORTRIPTYLINE HCL 25 MG CAPSULE PO SCH (22:42)
--- NOTE | 2018-08-02 23:03 | HP ---
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 ) Gastrointestinal: Yes: Diverticulitis, GERD Psych: Yes: Depression - Smoking History Smoking history: Never smoked Have you smoked in the past 12 months: No Aproximately how many cigarettes per day: 2 If you are a former smoker, when did you quit?: JAN 2015 - Alcohol/Substance Use Hx Alcohol Use: No History of Substance Use: reports: None - Social History History of Recent Travel: No Home Medications - Allergies Allergies/Adverse Reactions: Allergies Allergy/AdvReac Type Severity Reaction Status Date / Time No Known Allergies Allergy Verified 08/02/18 11:58 - Home Medications Home Medications: Ambulatory Orders Omeprazole 40 mg PO DAILY 12/15/17 Alprazolam [Xanax] 2 mg PO HS 02/01/18 Escitalopram Oxalate [Lexapro -] 20 mg PO DAILY 02/01/18 Gabapentin 800 mg PO PRN PRN 02/01/18 Nortriptyline HCl [Pamelor] 75 mg PO HS 02/01/18 Docusate Sodium [Colace] 100 mg PO TID #21 capsule 02/08/18 Tizanidine HCl 4 mg PO DAILY 08/02/18 Tylenol 325 mg PO Q4HWA PRN 08/02/18 oxyCODONE HCL [Roxicodone -] 10 mg PO Q4H PRN MDD 6 08/02/18 Physical Examination Vital Signs: Vital Signs Temperature 98.8 F 08/02/18 20:00 Pulse Rate 100 H 08/02/18 20:00 Respiratory Rate 20 08/02/18 20:00 Blood Pressure 137/72 08/02/18 20:00 O2 Sat by Pulse Oximetry (%) 98 08/02/18 20:00 Labs: CBC, BMP 08/02/18 12:08 08/02/18 12:08
[2018-08-02] MEDS: oxyCODONE HCL 5 MG TABLET PO PRN (23:11)
[2018-08-02] MEDS: ALPRAZolam 2 MG TABLET PO SCH (23:11)
[2018-08-02] MEDS: HEPARIN - 25,000 UNIT in SODIUM CHLORIDE 495 ML IV SCH (23:30)
[2018-08-03 08:31] LABS: BASO % 0.6 % (0-2.0); EOS % 1.9 % (0-4.5); HEMOGLOBIN 13.4 GM/dL (11.7-16.9); LYMPH % 28.3 % (8-40); MCH 29.5 pg (25.7-33.7); MCHC 33.5 g/dl (32.0-35.9); MEAN CELL VOLUME 88.1 fl (80-96); MEAN PLT VOLUME 8.7 fl (7.5-11.1); MONO % 11.8 % (3.8-10.2); NEUT % 57.4 % (42.8-82.8); PLATELET COUNT 191 K/MM3 (134-434); RBC 4.54 M/mm3 (4.00-5.60); RDW 15.4 % (11.9-15.9); WHITE BLOOD COUNT 6.5 K/mm3 (4.0-10.0)
[2018-08-03 09:01] LABS: ALBUMIN 3.1 g/dl (3.4-5.0); ALK PHOS 60 U/L (45-117); ANION GAP 7 MMOL/L (8-16); BILIRUBIN,TOTAL 0.2 mg/dL (0.2-1); BLOOD UREA NITROGEN 9 mg/dL (7-18); CALCIUM 7.9 mg/dL (8.5-10.1); CHLORIDE 109 mmol/L (98-107); CO2 26 mmol/L (21-32); GLUCOSE,RANDOM 101 mg/dL (74-106); SGOT/AST 28 U/L (15-37); SGPT/ALT 87 U/L (13-61); SODIUM 142 mmol/L (136-145)
[2018-08-03] MEDS: oxyCODONE HCL 5 MG TABLET PO PRN ×3 (09:12→21:32)
[2018-08-03] MEDS: ACETAMINOPHEN 325 MG TABLET (FP) PO PRN ×3 (09:13→21:36)
[2018-08-03] MEDS: PANTOPRAZOLE 40 MG TABLET (FP) PO SCH (09:15)
[2018-08-03] MEDS: ESCITALOPRAM OXALATE 20 MG TABLET (FP) PO SCH (09:15)
[2018-08-03] MEDS: ASPIRIN 81 MG CHEWABLE TABLETS PO SCH (09:15)
[2018-08-03] MEDS: metoPROLOL SUCCINATE 25 MG TAB.SR.24H (FP) PO SCH ×2 (09:15→21:30)
[2018-08-03] MEDS ORDERED: PANTOPRAZOLE 40 MG TABLET (FP) PO SCH (10:00)
[2018-08-03] MEDS ORDERED: HEPARIN NA (PORCINE) 5,000 UNITS/ML 1ML VIAL IVPUSH PRN (10:34)
[2018-08-03] MEDS: HEPARIN - 25,000 UNIT in SODIUM CHLORIDE 495 ML IV SCH ×2 (10:53→18:12)
[2018-08-03] MEDS: HEPARIN NA (PORCINE) 5,000 UNITS/ML 1ML VIAL IVPUSH PRN ×2 (10:53→18:12)
--- NOTE | 2018-08-03 13:18 | PN ---
Progress Note (short form) - Note Progress Note: s: no cp sob palps dizzy o: Vital Signs Period Temp Pulse Resp BP Sys/Martinez Pulse Ox Last 24 Hr 98 F-99.4 F 100-121 20-20 100-156/68-88 98-98 Constitutional:nad Eyes: Yes: Conjunctiva Clear, Respiratory: Yes: CTA Bilaterally (no wheezing, rales) Gastrointestinal: Yes: Other (Old surgical incision. Discrete tenderness to palpation right upper quadrant that reproduces his symptoms almost exactly.) Cardiovascular: Yes: Regular Rate and Rhythm JVD: No Heart Sounds: Yes: S1, S2 (RRR, no M/R/G) Edema: No Peripheral Pulses: 2+ Left Carotid, 2+ Right Carotid, 2+ Left Femoral, 2+ Right Femoral, 2+ Left Doralis Pedis, 2+ Right Dorsalis Pedis Integumentary: Yes: WNL Neurological: Yes: WNL, Alert, Oriented Psychiatric: Yes: WNL Current Medications Generic Name Dose Route Start Last Admin Trade Name Freq PRN Reason Stop Dose Admin Acetaminophen 650 mg 08/02/18 23:02 08/03/18 09:13 Tylenol - PO 08/05/18 23:01 650 mg Q4H PRN Administration PAIN LEVEL 6-10 Alprazolam 2 mg 08/02/18 23:15 08/02/18 23:11 Xanax - PO 2 mg HS CLARI Administration Aspirin 81 mg 08/03/18 10:00 08/03/18 09:15 Asa - PO 81 mg DAILY CLARI Administration Escitalopram Oxalate 20 mg 08/03/18 10:00 08/03/18 09:15 Lexapro - PO 20 mg DAILY CLARI Administration Gabapentin 800 mg 08/02/18 22:00 08/02/18 22:34 Neurontin - PO 800 mg HS CLARI Administration Heparin Sodium (Porcine) 5,000 unit 08/03/18 10:34 08/03/18 10:53 Heparin - IVPUSH 5,000 unit PRN PRN Administration APPT Heparin Sodium (Porcine) 1,000 unit 08/03/18 10:34 Heparin - IVPUSH PRN PRN APPT Heparin Sodium (Porcine) 25, 500 mls @ 20 mls/hr 08/02/18 16:30 08/03/18 10: 53 000 unit/ Sodium Chloride IV 1,150 unit/hr TITR CLARI 23 mls/hr Administration Protocol 1,000 UNIT/HR Dextrose/Sodium Chloride 1,000 mls @ 75 mls/hr 08/02/18 20:15 D5-1/2ns - IV ASDIR CLARI Metoprolol Succinate 25 mg 08/03/18 10:00 08/03/18 09:15 Toprol Xl - PO 25 mg BID CLARI Administration Nortriptyline HCl 75 mg 08/02/18 22:00 08/02/18 22:42 Pamelor - PO 75 mg HS CLARI Administration Ondansetron HCl 4 mg 08/02/18 20:04 Zofran Injection IVPUSH Q6H PRN NAUSEA Oxycodone HCl 10 mg 08/02/18 23:02 08/03/18 09:12 Roxicodone - PO 10 mg Q4H PRN Administration PAIN LEVEL 6-10 Pantoprazole Sodium 40 mg 08/02/18 20:00 08/03/18 09:15 Protonix - PO 40 mg DAILY CLARI Administration CBC, BMP 08/03/18 06:15 08/03/18 06:15 tele: sr echo 07/2018: nl lv/rv, mild tr CTA chest, abdomen negative for pulmonary embolism and aortic dissection. No pericardial effusion seen on echo nor CT. Problem List - Problems (1) Abdominal pain Code(s): R10.9 - UNSPECIFIED ABDOMINAL PAIN Qualifiers: Abdominal location: generalized Qualified Code(s): R10.84 - Generalized abdominal pain (2) Transaminitis Code(s): R74.0 - NONSPEC ELEV OF LEVELS OF TRANSAMNS & LACTIC ACID DEHYDRGNSE (3) Abnormal ECG Code(s): R94.31 - ABNORMAL ELECTROCARDIOGRAM [ECG] [EKG] (4) Chest pain Code(s): R07.9 - CHEST PAIN, UNSPECIFIED Qualifiers: Chest pain type: chest pain on breathing Qualified Code(s): R07.1 - Chest pain on breathing; R07.81 - Pleurodynia (5) New onset atrial fibrillation Code(s): I48.91 - UNSPECIFIED ATRIAL FIBRILLATION (6) Diverticulitis Code(s): K57.92 - DVTRCLI OF INTEST, PART UNSP, W/O PERF OR ABSCESS W/O BLEED Assessment/Plan Acute epigastric pain with radiation to sternum and back, pleuritic component -no cardiac etiology Hypertension: -improved with bb Atrial fibrillation, newly diagnosed, of unknown onset -converted to sr now -cont bb -has htn so has indication for ac based on chadsvasc, on hep gtt now, can change to eliquis when possible
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
[2018-08-03 14:55] LABS: PH,URINE 5.5 (5.0-8.0); URINE APPEARANCE CLEAR; URINE BILIRUBIN NEGATIVE (NEGATIVE); URINE COLOR YELLOW; URINE GLUCOSE (UA) TRACE (NEGATIVE); URINE KETONE TRACE (NEGATIVE); URINE LEUK ESTERASE NEGATIVE (NEGATIVE); URINE NITRITE NEGATIVE (NEGATIVE); URINE PROTEIN NEGATIVE (NEGATIVE); URINE UROBILINOGEN 0.2 mg/dL (0.2-1.0)
[2018-08-03 17:34] LABS: INR 1.01 (0.83-1.09); PROTHROMBIN TIME (PATIENT) 11.9 SEC (9.7-13.0)
[2018-08-03 20:26] LABS: INR 1.01 (0.83-1.09); PROTHROMBIN TIME (PATIENT) 11.9 SEC (9.7-13.0)
[2018-08-03 20:50] LABS: ACTIVATED PTT 127.4 SECONDS (25.2-36.5)
[2018-08-03] MEDS ORDERED: PT OWN MED DRAWER 7, Y5N ONE ×2 (21:26→21:32)
[2018-08-03] MEDS: GABAPENTIN 400 MG CAPSULE (FP) PO SCH (21:30)
[2018-08-03] MEDS: ALPRAZolam 2 MG TABLET PO SCH (21:30)
[2018-08-03] MEDS: NORTRIPTYLINE HCL 25 MG CAPSULE PO SCH (21:31)
--- NOTE | 2018-08-03 21:54 | PN ---
Progress Note, Physician - Current Medication List Current Medications: Active Medications Acetaminophen (Tylenol -) 650 mg PO Q4H PRN PRN Reason: PAIN LEVEL 6-10 Stop: 08/05/18 23:01 Last Admin: 08/03/18 21:36 Dose: 650 mg Alprazolam (Xanax -) 2 mg PO HS [facility] [place] Last Admin: 08/03/18 21:30 Dose: 2 mg Aspirin (Asa -) 81 mg PO DAILY [facility] [place] Last Admin: 08/03/18 09:15 Dose: 81 mg Escitalopram Oxalate (Lexapro -) 20 mg PO DAILY [facility] [place] Last Admin: 08/03/18 09:15 Dose: 20 mg Gabapentin (Neurontin -) 800 mg PO HS [facility] [place] Last Admin: 08/03/18 21:30 Dose: 800 mg Heparin Sodium (Porcine) (Heparin -) 5,000 unit IVPUSH PRN PRN PRN Reason: APPT Last Admin: 08/03/18 18:12 Dose: 5,000 unit Heparin Sodium (Porcine) (Heparin -) 1,000 unit IVPUSH PRN PRN PRN Reason: APPT Heparin Sodium (Porcine) 25, (000 unit/ Sodium Chloride) 500 mls @ 20 mls/hr IV TITR CLARI; Protocol Last Admin: 08/03/18 18:12 Dose: 1,300 unit/hr, 26 mls/hr Dextrose/Sodium Chloride (D5-1/2ns -) 1,000 mls @ 75 mls/hr IV ASDIR [facility] [place] Last Admin: 08/03/18 14:38 Dose: 75 mls/hr Metoprolol Succinate (Toprol Xl -) 25 mg PO BID [facility] [place] Last Admin: 08/03/18 21:30 Dose: 25 mg Nortriptyline HCl (Pamelor -) 75 mg PO HS [facility] [place] Last Admin: 08/03/18 21:31 Dose: 75 mg Ondansetron HCl (Zofran Injection) 4 mg IVPUSH Q6H PRN PRN Reason: NAUSEA Oxycodone HCl (Roxicodone -) 10 mg PO Q4H PRN PRN Reason: PAIN LEVEL 6-10 Last Admin: 08/03/18 21:32 Dose: 10 mg Pantoprazole Sodium (Protonix -) 40 mg PO DAILY [facility] [place] Last Admin: 08/03/18 09:15 Dose: 40 mg - Objective Vital Signs: Vital Signs Temperature 98.8 F 08/03/18 18:00 Pulse Rate 102 H 08/03/18 18:00 Respiratory Rate 23 H 08/03/18 18:00 Blood Pressure 127/81 08/03/18 18:00 O2 Sat by Pulse Oximetry (%) 98 08/02/18 21:00 Labs: CBC, BMP 08/03/18 06:15 08/03/18 06:15 INR, PTT INR 1.01 (0.83-1.09) 08/03/18 19:00
[2018-08-04 07:49] LABS: HEMATOCRIT 40.2 % (35.4-49); HEMOGLOBIN 13.2 GM/dL (11.7-16.9); MCH 28.6 pg (25.7-33.7); MCHC 32.7 g/dl (32.0-35.9); MEAN CELL VOLUME 87.5 fl (80-96); MEAN PLT VOLUME 8.3 fl (7.5-11.1); PLATELET COUNT 176 K/MM3 (134-434); RDW 15.2 % (11.9-15.9); WHITE BLOOD COUNT 6.4 K/mm3 (4.0-10.0)
[2018-08-04] MEDS: HEPARIN - 25,000 UNIT in SODIUM CHLORIDE 495 ML IV SCH (09:10)
[2018-08-04] MEDS: HEPARIN NA (PORCINE) 5,000 UNITS/ML 1ML VIAL IVPUSH PRN (09:12)
[2018-08-04] MEDS: ACETAMINOPHEN 325 MG TABLET (FP) PO PRN ×2 (09:13→21:44)
[2018-08-04] MEDS: oxyCODONE HCL 5 MG TABLET PO PRN ×3 (09:13→21:43)
[2018-08-04] MEDS: metoPROLOL SUCCINATE 25 MG TAB.SR.24H (FP) PO SCH ×2 (09:13→21:42)
[2018-08-04] MEDS: ESCITALOPRAM OXALATE 20 MG TABLET (FP) PO SCH (09:14)
[2018-08-04] MEDS: ASPIRIN 81 MG CHEWABLE TABLETS PO SCH (09:15)
[2018-08-04] MEDS: PANTOPRAZOLE 40 MG TABLET (FP) PO SCH (09:15)
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
--- NOTE | 2018-08-04 14:38 | PN ---
Progress Note (short form) - Note Progress Note: s: no cp sob palps dizzy, abd pain improved o: Vital Signs Period Temp Pulse Resp BP Sys/Martinez Pulse Ox Last 24 Hr 98.3 F-99.3 F 101-104 20-23 108-127/52-96 99-99 Constitutional:nad Eyes: Yes: Conjunctiva Clear, Respiratory: Yes: CTA Bilaterally (no wheezing, rales) Gastrointestinal: Yes: Other (Old surgical incision. Discrete tenderness to palpation right upper quadrant that reproduces his symptoms almost exactly.) Cardiovascular: Yes: Regular Rate and Rhythm JVD: No Heart Sounds: Yes: S1, S2 (RRR, no M/R/G) Edema: No Peripheral Pulses: 2+ Left Carotid, 2+ Right Carotid, 2+ Left Femoral, 2+ Right Femoral, 2+ Left Doralis Pedis, 2+ Right Dorsalis Pedis Integumentary: Yes: WNL Neurological: Yes: WNL, Alert, Oriented Psychiatric: Yes: WNL Current Medications Acetaminophen (Tylenol -) 650 mg PO Q4H PRN PRN Reason: PAIN LEVEL 6-10 Stop: 08/05/18 23:01 Last Admin: 08/04/18 09:13 Dose: 650 mg Alprazolam (Xanax -) 2 mg PO HS [facility] Last Admin: 08/03/18 21:30 Dose: 2 mg Apixaban (Eliquis -) 5 mg PO BID [facility] Aspirin (Asa -) 81 mg PO DAILY [facility] Last Admin: 08/04/18 09:15 Dose: 81 mg Escitalopram Oxalate (Lexapro -) 20 mg PO DAILY [facility] Last Admin: 08/04/18 09:14 Dose: 20 mg Gabapentin (Neurontin -) 800 mg PO HS [facility] Last Admin: 08/03/18 21:30 Dose: 800 mg Dextrose/Sodium Chloride (D5-1/2ns -) 1,000 mls @ 75 mls/hr IV ASDIR [facility] Last Admin: 08/03/18 14:38 Dose: 75 mls/hr Piperacillin Sod/Tazobactam (Sod 3.375 gm/ Dextrose) 50 mls @ 100 mls/hr IVPB Q8H-IV CLARI; Protocol Metoprolol Succinate (Toprol Xl -) 25 mg PO BID [facility] Last Admin: 08/04/18 09:13 Dose: 25 mg Nortriptyline HCl (Pamelor -) 75 mg PO HS [facility] Last Admin: 08/03/18 21:31 Dose: 75 mg Ondansetron HCl (Zofran Injection) 4 mg IVPUSH Q6H PRN PRN Reason: NAUSEA Oxycodone HCl (Roxicodone -) 10 mg PO Q4H PRN PRN Reason: PAIN LEVEL 6-10 Last Admin: 08/04/18 09:13 Dose: 10 mg Pantoprazole Sodium (Protonix -) 40 mg PO DAILY [facility] Last Admin: 08/04/18 09:15 Dose: 40 mg tele: sr echo 07/2018: nl lv/rv, mild tr CTA chest, abdomen negative for pulmonary embolism and aortic dissection. No pericardial effusion seen on echo nor CT. Problem List - Problems (1) Abdominal pain Code(s): R10.9 - UNSPECIFIED ABDOMINAL PAIN Qualifiers: Abdominal location: generalized Qualified Code(s): R10.84 - Generalized abdominal pain (2) Transaminitis Code(s): R74.0 - NONSPEC ELEV OF LEVELS OF TRANSAMNS & LACTIC ACID DEHYDRGNSE (3) Abnormal ECG Code(s): R94.31 - ABNORMAL ELECTROCARDIOGRAM [ECG] [EKG] (4) Chest pain Code(s): R07.9 - CHEST PAIN, UNSPECIFIED Qualifiers: Chest pain type: chest pain on breathing Qualified Code(s): R07.1 - Chest pain on breathing; R07.81 - Pleurodynia (5) New onset atrial fibrillation Code(s): I48.91 - UNSPECIFIED ATRIAL FIBRILLATION (6) Diverticulitis Code(s): K57.92 - DVTRCLI OF INTEST, PART UNSP, W/O PERF OR ABSCESS W/O BLEED Assessment/Plan Acute epigastric pain with radiation to sternum and back, pleuritic component -no cardiac etiology Hypertension: -improved with bb Atrial fibrillation, newly diagnosed, of unknown onset -converted to sr now -cont bb -has htn so has indication for ac based on chadsvasc, on heparin gtt transition to eliquis when able
[2018-08-04] MEDS: PIPERACILLIN/TAZOB 3.375 GM 3.375 GM in DEXTROSE 5%-WATER - 50 ML IVPB SCH ×2 (15:41→17:44)
[2018-08-04] MEDS ORDERED: DEXTROSE 5%-WATER - 50 ML IVPB ONE (16:51)
[2018-08-04] MEDS ORDERED: PIPERACILLIN/TAZOBACTAM 3.375 GM VIAL IVPB ONE (16:51)
[2018-08-04] MEDS: APIXABAN 5 MG TABLET PO SCH ×2 (17:13→21:41)
[2018-08-04] MEDS: GABAPENTIN 400 MG CAPSULE (FP) PO SCH (21:41)
[2018-08-04] MEDS: NORTRIPTYLINE HCL 25 MG CAPSULE PO SCH (21:42)
[2018-08-04] MEDS: ALPRAZolam 2 MG TABLET PO SCH (21:43)
--- NOTE | 2018-08-04 22:25 | PN ---
Progress Note, Physician History of Present Illness: Pt denies any abdominal pain However pt still complains of lower back pain - Current Medication List Current Medications: Active Medications Acetaminophen (Tylenol -) 650 mg PO Q4H PRN PRN Reason: PAIN LEVEL 6-10 Stop: 08/05/18 23:01 Last Admin: 08/04/18 21:44 Dose: 650 mg Alprazolam (Xanax -) 2 mg PO HS [facility] Last Admin: 08/04/18 21:43 Dose: 2 mg Apixaban (Eliquis -) 5 mg PO BID [facility] Last Admin: 08/04/18 21:41 Dose: 5 mg Aspirin (Asa -) 81 mg PO DAILY [facility] Last Admin: 08/04/18 09:15 Dose: 81 mg Escitalopram Oxalate (Lexapro -) 20 mg PO DAILY [facility] Last Admin: 08/04/18 09:14 Dose: 20 mg Gabapentin (Neurontin -) 800 mg PO HS [facility] Last Admin: 08/04/18 21:41 Dose: 800 mg Dextrose/Sodium Chloride (D5-1/2ns -) 1,000 mls @ 75 mls/hr IV ASDIR [facility] Last Admin: 08/03/18 14:38 Dose: 75 mls/hr Piperacillin Sod/Tazobactam (Sod 3.375 gm/ Dextrose) 50 mls @ 100 mls/hr IVPB Q8H-IV [facility]; Protocol Last Admin: 08/04/18 17:44 Dose: Not Given Metoprolol Succinate (Toprol Xl -) 25 mg PO BID [facility] Last Admin: 08/04/18 21:42 Dose: 25 mg Nortriptyline HCl (Pamelor -) 75 mg PO [facility] Last Admin: 08/04/18 21:42 Dose: 75 mg Ondansetron HCl (Zofran Injection) 4 mg IVPUSH Q6H PRN PRN Reason: NAUSEA Oxycodone HCl (Roxicodone -) 10 mg PO Q4H PRN PRN Reason: PAIN LEVEL 6-10 Last Admin: 08/04/18 21:43 Dose: 10 mg Pantoprazole Sodium (Protonix -) 40 mg PO DAILY [facility] Last Admin: 08/04/18 09:15 Dose: 40 mg - Objective Vital Signs: Vital Signs Temperature 99.1 F 08/04/18 20:12 Pulse Rate 98 H 08/04/18 20:12 Respiratory Rate 20 08/04/18 21:00 Blood Pressure 119/78 08/04/18 20:12 O2 Sat by Pulse Oximetry (%) 99 08/04/18 21:00 Neck: Yes: WNL, Supple Cardiovascular: Yes: WNL, Regular Rate and Rhythm Respiratory: Yes: WNL, Regular, CTA Bilaterally Gastrointestinal: Yes: WNL, Normal Bowel Sounds, Soft, Other ((+) multiple midline scars) Edema: No Labs: CBC, BMP 08/04/18 05:30 08/03/18 06:15 INR, PTT INR 1.01 (0.83-1.09) 08/03/18 19:00 Problem List - Problems (1) New onset atrial fibrillation Assessment/Plan: Heart rate controlled Will dc IV heparin and bridge w/ eliquis Code(s): I48.91 - UNSPECIFIED ATRIAL FIBRILLATION (2) Abdominal pain Assessment/Plan: Pt w/ h/o multiple abdominal surgeries Pt febrile to 99 however WBC/lactic acid is normal Cont IV zosyn MRI abd pending Code(s): R10.9 - UNSPECIFIED ABDOMINAL PAIN Qualifiers: Abdominal location: generalized Qualified Code(s): R10.84 - Generalized abdominal pain (3) Low back pain Assessment/Plan: Chronic Pain management consulted Cont oxycodone/gabapentin PT eval Code(s): M54.5 - LOW BACK PAIN Qualifiers: Chronicity: chronic Back pain laterality: bilateral Sciatica presence: without sciatica Qualified Code(s): M54.5 - Low back pain; G89.29 - Other chronic pain (4) HTN (hypertension) Assessment/Plan: Cont asa/metoprolol Code(s): I10 - ESSENTIAL (PRIMARY) HYPERTENSION (5) TBI (traumatic brain injury) Code(s): S06.9X9A - UNSP INTRACRANIAL INJURY W LOC OF UNSP DURATION, INIT (6) Depression Assessment/Plan: Cont lexapro/xanax Code(s): F32.9 - MAJOR DEPRESSIVE DISORDER, SINGLE EPISODE, UNSPECIFIED (7) Chest pain Assessment/Plan: Resolved Code(s): R07.9 - CHEST PAIN, UNSPECIFIED Qualifiers: Chest pain type: chest pain on breathing Qualified Code(s): R07.1 - Chest pain on breathing; R07.81 - Pleurodynia
[2018-08-05] MEDS: PIPERACILLIN/TAZOB 3.375 GM 3.375 GM in DEXTROSE 5%-WATER - 50 ML IVPB SCH ×3 (02:33→17:42)
[2018-08-05] MEDS ORDERED: DEXTROSE 5%-WATER - 50 ML IVPB ONE ×3 (03:29→17:39)
[2018-08-05] MEDS ORDERED: PIPERACILLIN/TAZOBACTAM 3.375 GM VIAL IVPB ONE ×3 (03:29→17:39)
[2018-08-05 06:41] LABS: BASO % 0.6 % (0-2.0); EOS % 4.1 % (0-4.5); HEMATOCRIT 40.2 % (35.4-49); HEMOGLOBIN 13.4 GM/dL (11.7-16.9); LYMPH % 26.9 % (8-40); MCH 29.1 pg (25.7-33.7); MCHC 33.3 g/dl (32.0-35.9); MEAN CELL VOLUME 87.3 fl (80-96); MEAN PLT VOLUME 8.3 fl (7.5-11.1); NEUT % 53.4 % (42.8-82.8); PLATELET COUNT 198 K/MM3 (134-434); RDW 15.1 % (11.9-15.9); WHITE BLOOD COUNT 5.9 K/mm3 (4.0-10.0)
[2018-08-05 07:12] LABS: ALK PHOS 58 U/L (45-117); ANION GAP 7 MMOL/L (8-16); BILIRUBIN,TOTAL 0.2 mg/dL (0.2-1); BLOOD UREA NITROGEN 7 mg/dL (7-18); CALCIUM 8.2 mg/dL (8.5-10.1); CHLORIDE 106 mmol/L (98-107); CO2 26 mmol/L (21-32); CREATININE 0.9 mg/dL (0.55-1.3); GLUCOSE,RANDOM 135 mg/dL (74-106); POTASSIUM 4.1 mmol/L (3.5-5.1); SGOT/AST 22 U/L (15-37); SGPT/ALT 69 U/L (13-61); SODIUM 138 mmol/L (136-145); TOT PROT 6.3 g/dl (6.4-8.2)
--- NOTE | 2018-08-05 07:33 | CONSULT ---
- Consultation REQUESTING PROVIDER: CONSULT REQUEST: We have been asked to surgically evaluate this patient for ? abdominal pain ? PCP:Ame Landaverde HISTORY OF PRESENT ILLNESS: CTSP who is a well known to me; he is a 47 y/o male w/ h/o Hartmans procedure for diverticulitis and subsequent congregational of coloniuc continuity; both his post courses were complicated by acute on chronic pain issues secondary to surgery and his chronic LBP; he was admitted now w/back and chest pain and no GI c/o's; he is moving his bowels w/o difficulty. PMHx: PTSD,LBP; depression; GERD PSHx: Hartmans procedure; colocolostomy Home Medications Medication Instructions Recorded Omeprazole 40 mg PO DAILY 12/15/17 Alprazolam [Xanax] 2 mg PO HS 02/01/18 Escitalopram Oxalate [Lexapro -] 20 mg PO DAILY 02/01/18 Gabapentin 800 mg PO PRN PRN 02/01/18 Nortriptyline HCl [Pamelor] 75 mg PO HS 02/01/18 Docusate Sodium [Colace] 100 mg PO TID #21 capsule 02/08/18 Tizanidine HCl 4 mg PO DAILY 08/02/18 Tylenol 325 mg PO Q4HWA PRN 08/02/18 oxyCODONE HCL [Roxicodone -] 10 mg PO Q4H PRN MDD 6 08/02/18 Allergies Allergy/AdvReac Type Severity Reaction Status Date / Time No Known Allergies Allergy Verified 08/02/18 11:58 PHYSICAL EXAM: GENERAL: Awake, alert, and fully oriented, in no acute distress. HEAD: Normal with no signs of trauma. EYES: PERRL, sclera anicteric, conjunctiva clear. NECK: Normal ROM, supple without lymphadenopathy, JVD, or masses. ABDOMEN: Soft, nontender, not distended, normoactive bowel sounds, no guarding, no rebound, no masses. No organomegaly. No hernias; healed incisions. MUSCULOSKELETAL: Normal ROM at all joints. No bony deformities or tenderness. No CVA tenderness. UPPER EXTREMITIES: 2+ pulses, warm, well-perfused. No cyanosis. Cap refill <2 seconds. No peripheral edema. LOWER EXTREMITIES: 2+ pulses, warm, well-perfused. No calf tenderness. No peripheral edema. NEUROLOGICAL: Normal speech, gait not observed. PSYCH: Cooperative. Good eye contact. Appropriate mood and affect. SKIN: Warm, dry, normal turgor, no rashes or lesions noted. Vital Signs Temperature 97.4 F L 08/05/18 06:00 Pulse Rate 98 H 08/05/18 06:00 Respiratory Rate 20 08/05/18 06:00 Blood Pressure 111/71 08/05/18 06:00 O2 Sat by Pulse Oximetry (%) 99 08/04/18 21:00 Lab Results WBC 5.9 K/mm3 (4.0-10.0) 08/05/18 06:30 RBC 4.60 M/mm3 (4.00-5.60) 08/05/18 06:30 Hgb 13.4 GM/dL (11.7-16.9) 08/05/18 06:30 Hct 40.2 % (35.4-49) 08/05/18 06:30 MCV 87.3 fl (80-96) 08/05/18 06:30 MCHC 33.3 g/dl (32.0-35.9) 08/05/18 06:30 RDW 15.1 % (11.9-15.9) 08/05/18 06:30 Plt Count 198 K/MM3 (134-434) 08/05/18 06:30 Sodium 138 mmol/L (136-145) 08/05/18 06:30 Potassium 4.1 mmol/L (3.5-5.1) 08/05/18 06:30 Chloride 106 mmol/L (98-107) 08/05/18 06:30 Carbon Dioxide 26 mmol/L (21-32) 08/05/18 06:30 Anion Gap 7 MMOL/L (8-16) L 08/05/18 06:30 BUN 7 mg/dL (7-18) 08/05/18 06:30 Creatinine 0.9 mg/dL (0.55-1.3) 08/05/18 06:30 Random Glucose 135 mg/dL (74-106) H 08/05/18 06:30 Calcium 8.2 mg/dL (8.5-10.1) L 08/05/18 06:30 Blood Type O POSITIVE 08/02/18 12:40 Antibody Screen Negative 08/02/18 12:40 INR 1.01 (0.83-1.09) 08/03/18 19:00 Imaging w/u to date reviewed; as well as ER vist 05/05/18. IMP: no evidence of an acute surgical abdomen; patient c/o's are not a result of his previous abdominal surgeries. PLAN: Continue w/u as per primary team; he may f/u as an outpatient as needed. Farhat Griffin MD FACS
[2018-08-05] MEDS: ASPIRIN 81 MG CHEWABLE TABLETS PO SCH (11:11)
[2018-08-05] MEDS: oxyCODONE HCL 5 MG TABLET PO PRN (11:11)
[2018-08-05] MEDS: ESCITALOPRAM OXALATE 20 MG TABLET (FP) PO SCH (11:11)
[2018-08-05] MEDS: PANTOPRAZOLE 40 MG TABLET (FP) PO SCH (11:11)
[2018-08-05] MEDS: ACETAMINOPHEN 325 MG TABLET (FP) PO PRN (11:12)
[2018-08-05] MEDS: APIXABAN 5 MG TABLET PO SCH (11:13)
--- NOTE | 2018-08-05 11:17 | EKG ---
Test Reason : Blood Pressure : / mmHG Vent. Rate : 086 BPM Atrial Rate : 156 BPM P-R Int : 000 ms QRS Dur : 092 ms QT Int : 366 ms P-R-T Axes : 000 044 040 degrees QTc Int : 437 ms ATRIAL FIBRILLATION EARLY REPOLARIZATION ABNORMAL ECG WHEN COMPARED WITH ECG OF 02-AUG-2018 11:43, NO SIGNIFICANT CHANGE WAS FOUND Confirmed by LENARD GUZMAN MD ([id number]) on 08/05/2018 11:17:07 AM Referred By: Confirmed By:LENARD GUZMAN MD
--- NOTE | 2018-08-05 11:19 | EKG ---
Test Reason : Blood Pressure : / mmHG Vent. Rate : 100 BPM Atrial Rate : 119 BPM P-R Int : 000 ms QRS Dur : 092 ms QT Int : 300 ms P-R-T Axes : 000 045 043 degrees QTc Int : 387 ms ATRIAL FIBRILLATION EARLY REPOLARIZATION ABNORMAL ECG WHEN COMPARED WITH ECG OF 17-FEB-2018 11:41, ATRIAL FIBRILLATION HAS REPLACED SINUS RHYTHM Confirmed by LNEARD GUZMAN MD ([id number]) on 08/05/2018 11:19:05 AM Referred By: Confirmed By:LENARD GUZMAN MD
[2018-08-05 11:32] VITALS: PULSE 102
[2018-08-05] MEDS: metoPROLOL SUCCINATE 25 MG TAB.SR.24H (FP) PO SCH (12:02)
--- NOTE | 2018-08-05 14:48 | PN ---
Progress Note, Physician - Current Medication List Current Medications: Active Medications Acetaminophen (Tylenol -) 650 mg PO Q4H PRN PRN Reason: PAIN LEVEL 6-10 Stop: 08/05/18 23:01 Last Admin: 08/05/18 11:12 Dose: 650 mg Alprazolam (Xanax -) 2 mg PO [facility] Last Admin: 08/04/18 21:43 Dose: 2 mg Apixaban (Eliquis -) 5 mg PO BID [facility] Last Admin: 08/05/18 11:13 Dose: 5 mg Aspirin (Asa -) 81 mg PO DAILY [facility] Last Admin: 08/05/18 11:11 Dose: 81 mg Escitalopram Oxalate (Lexapro -) 20 mg PO DAILY [facility] Last Admin: 08/05/18 11:11 Dose: 20 mg Gabapentin (Neurontin -) 800 mg PO [facility] Last Admin: 08/04/18 21:41 Dose: 800 mg Dextrose/Sodium Chloride (D5-1/2ns -) 1,000 mls @ 75 mls/hr IV ASDIR [facility] Last Admin: 08/03/18 14:38 Dose: 75 mls/hr Piperacillin Sod/Tazobactam (Sod 3.375 gm/ Dextrose) 50 mls @ 100 mls/hr IVPB Q8H-IV [facility]; Protocol Last Admin: 08/05/18 12:02 Dose: 100 mls/hr Metoprolol Succinate (Toprol Xl -) 25 mg PO BID [facility] Last Admin: 08/05/18 12:02 Dose: 25 mg Nortriptyline HCl (Pamelor -) 75 mg PO [facility] Last Admin: 08/04/18 21:42 Dose: 75 mg Ondansetron HCl (Zofran Injection) 4 mg IVPUSH Q6H PRN PRN Reason: NAUSEA Oxycodone HCl (Roxicodone -) 10 mg PO Q4H PRN PRN Reason: PAIN LEVEL 6-10 Last Admin: 08/05/18 11:11 Dose: 10 mg Pantoprazole Sodium (Protonix -) 40 mg PO DAILY [facility] Last Admin: 08/05/18 11:11 Dose: 40 mg - Objective Vital Signs: Vital Signs Temperature 98 F 08/05/18 11:26 Pulse Rate 102 H 08/05/18 11:26 Respiratory Rate 20 08/05/18 11:26 Blood Pressure 128/74 08/05/18 11:26 O2 Sat by Pulse Oximetry (%) 99 08/05/18 11:26 Labs: CBC, BMP 08/05/18 06:30 08/05/18 06:30 INR, PTT INR 1.01 (0.83-1.09) 08/03/18 19:00
[2018-08-05 14:57] VITALS: BP 114/78; TEMP 97.5
--- NOTE | 2018-08-05 16:04 | PN ---
Progress Note (short form) - Note Progress Note: s: no cp sob palps dizzy, wants to go home o: Vital Signs Period Temp Pulse Resp BP Sys/Martinez Pulse Ox Last 24 Hr 97.4 F-99.1 F 98-110 18-20 91-128/71-78 99-99 Constitutional:nad Eyes: Yes: Conjunctiva Clear, Respiratory: Yes: CTA Bilaterally (no wheezing, rales) Gastrointestinal: Yes: Other (Old surgical incision. Discrete tenderness to palpation right upper quadrant that reproduces his symptoms almost exactly.) Cardiovascular: Yes: Regular Rate and Rhythm JVD: No Heart Sounds: Yes: S1, S2 (RRR, no M/R/G) Edema: No Peripheral Pulses: 2+ Left Carotid, 2+ Right Carotid, 2+ Left Femoral, 2+ Right Femoral, 2+ Left Doralis Pedis, 2+ Right Dorsalis Pedis Integumentary: Yes: WNL Neurological: Yes: WNL, Alert, Oriented Psychiatric: Yes: WNL Current Medications Acetaminophen (Tylenol -) 650 mg PO Q4H PRN PRN Reason: PAIN LEVEL 6-10 Stop: 08/05/18 23:01 Last Admin: 08/05/18 11:12 Dose: 650 mg Alprazolam (Xanax -) 2 mg PO HS [facility] Last Admin: 08/04/18 21:43 Dose: 2 mg Apixaban (Eliquis -) 5 mg PO BID [facility] Last Admin: 08/05/18 11:13 Dose: 5 mg Aspirin (Asa -) 81 mg PO DAILY [facility] Last Admin: 08/05/18 11:11 Dose: 81 mg Escitalopram Oxalate (Lexapro -) 20 mg PO DAILY [facility] Last Admin: 08/05/18 11:11 Dose: 20 mg Gabapentin (Neurontin -) 800 mg PO HS [facility] Last Admin: 08/04/18 21:41 Dose: 800 mg Dextrose/Sodium Chloride (D5-1/2ns -) 1,000 mls @ 75 mls/hr IV ASDIR [facility] Last Admin: 08/03/18 14:38 Dose: 75 mls/hr Piperacillin Sod/Tazobactam (Sod 3.375 gm/ Dextrose) 50 mls @ 100 mls/hr IVPB Q8H-IV [facility]; Protocol Last Admin: 08/05/18 12:02 Dose: 100 mls/hr Metoprolol Succinate (Toprol Xl -) 25 mg PO BID [facility] Last Admin: 08/05/18 12:02 Dose: 25 mg Nortriptyline HCl (Pamelor -) 75 mg PO HS [facility] Last Admin: 08/04/18 21:42 Dose: 75 mg Ondansetron HCl (Zofran Injection) 4 mg IVPUSH Q6H PRN PRN Reason: NAUSEA Oxycodone HCl (Roxicodone -) 10 mg PO Q4H PRN PRN Reason: PAIN LEVEL 6-10 Last Admin: 08/05/18 11:11 Dose: 10 mg Pantoprazole Sodium (Protonix -) 40 mg PO DAILY [facility] Last Admin: 08/05/18 11:11 Dose: 40 mg tele: sr echo 07/2018: nl lv/rv, mild tr CTA chest, abdomen negative for pulmonary embolism and aortic dissection. No pericardial effusion seen on echo nor CT. Problem List - Problems (1) Abdominal pain Code(s): R10.9 - UNSPECIFIED ABDOMINAL PAIN Qualifiers: Abdominal location: generalized Qualified Code(s): R10.84 - Generalized abdominal pain (2) Transaminitis Code(s): R74.0 - NONSPEC ELEV OF LEVELS OF TRANSAMNS & LACTIC ACID DEHYDRGNSE (3) Abnormal ECG Code(s): R94.31 - ABNORMAL ELECTROCARDIOGRAM [ECG] [EKG] (4) Chest pain Code(s): R07.9 - CHEST PAIN, UNSPECIFIED Qualifiers: Chest pain type: chest pain on breathing Qualified Code(s): R07.1 - Chest pain on breathing; R07.81 - Pleurodynia (5) New onset atrial fibrillation Code(s): I48.91 - UNSPECIFIED ATRIAL FIBRILLATION (6) Diverticulitis Code(s): K57.92 - DVTRCLI OF INTEST, PART UNSP, W/O PERF OR ABSCESS W/O BLEED Assessment/Plan Acute epigastric pain with radiation to sternum and back, pleuritic component -no cardiac etiology - improved Hypertension: -improved with bb Atrial fibrillation, newly diagnosed, of unknown onset -converted to sr now -cont bb - continue eliquis stable for dc from cardiac perspective
--- NOTE | 2018-08-05 19:03 | PN ---
Progress Note, Physician - Current Medication List Current Medications: Active Medications Acetaminophen (Tylenol -) 650 mg PO Q4H PRN PRN Reason: PAIN LEVEL 6-10 Stop: 08/05/18 23:01 Last Admin: 08/05/18 11:12 Dose: 650 mg Alprazolam (Xanax -) 2 mg PO [facility] Last Admin: 08/04/18 21:43 Dose: 2 mg Apixaban (Eliquis -) 5 mg PO BID [facility] Last Admin: 08/05/18 11:13 Dose: 5 mg Aspirin (Asa -) 81 mg PO DAILY [facility] Last Admin: 08/05/18 11:11 Dose: 81 mg Escitalopram Oxalate (Lexapro -) 20 mg PO DAILY [facility] Last Admin: 08/05/18 11:11 Dose: 20 mg Gabapentin (Neurontin -) 800 mg PO [facility] Last Admin: 08/04/18 21:41 Dose: 800 mg Dextrose/Sodium Chloride (D5-1/2ns -) 1,000 mls @ 75 mls/hr IV ASDIR [facility] Last Admin: 08/03/18 14:38 Dose: 75 mls/hr Piperacillin Sod/Tazobactam (Sod 3.375 gm/ Dextrose) 50 mls @ 100 mls/hr IVPB Q8H-IV [facility]; Protocol Last Admin: 08/05/18 17:42 Dose: 100 mls/hr Metoprolol Succinate (Toprol Xl -) 25 mg PO BID [facility] Last Admin: 08/05/18 12:02 Dose: 25 mg Nortriptyline HCl (Pamelor -) 75 mg PO [facility] Last Admin: 08/04/18 21:42 Dose: 75 mg Ondansetron HCl (Zofran Injection) 4 mg IVPUSH Q6H PRN PRN Reason: NAUSEA Oxycodone HCl (Roxicodone -) 10 mg PO Q4H PRN PRN Reason: PAIN LEVEL 6-10 Last Admin: 08/05/18 11:11 Dose: 10 mg Pantoprazole Sodium (Protonix -) 40 mg PO DAILY [facility] Last Admin: 08/05/18 11:11 Dose: 40 mg - Objective Vital Signs: Vital Signs Temperature 97.5 F L 08/05/18 14:00 Pulse Rate 102 H 08/05/18 14:00 Respiratory Rate 20 04/01/19 14:00 Blood Pressure 114/78 04/01/19 14:00 O2 Sat by Pulse Oximetry (%) 99 08/05/18 11:26 Labs: CBC, BMP 08/05/18 06:30 08/05/18 06:30 INR, PTT INR 1.01 (0.83-1.09) 08/03/18 19:00 Problem List - Problems (1) New onset atrial fibrillation Code(s): I48.91 - UNSPECIFIED ATRIAL FIBRILLATION (2) Abdominal pain Code(s): R10.9 - UNSPECIFIED ABDOMINAL PAIN Qualifiers: Abdominal location: generalized Qualified Code(s): R10.84 - Generalized abdominal pain (3) Low back pain Code(s): M54.5 - LOW BACK PAIN Qualifiers: Chronicity: chronic Back pain laterality: bilateral Sciatica presence: without sciatica Qualified Code(s): M54.5 - Low back pain; G89.29 - Other chronic pain (4) HTN (hypertension) Code(s): I10 - ESSENTIAL (PRIMARY) HYPERTENSION (5) TBI (traumatic brain injury) Code(s): S06.9X9A - UNSP INTRACRANIAL INJURY W LOC OF UNSP DURATION, INIT (6) Depression Code(s): F32.9 - MAJOR DEPRESSIVE DISORDER, SINGLE EPISODE, UNSPECIFIED (7) Chest pain Code(s): R07.9 - CHEST PAIN, UNSPECIFIED Qualifiers: Chest pain type: chest pain on breathing Qualified Code(s): R07.1 - Chest pain on breathing; R07.81 - Pleurodynia
== END 2018-08-05 20:15 | disposition left against medical advice (07) | DRG 201 ==
LOC: JER 11:49 → SUPCPDRO 11:49 → JERBED 13:23 → J4W 16:03
PROVIDERS: ADMIT Internal Medicine; ATTEND Internal Medicine
DX: I48.91 Unspecified atrial fibrillation (principal); R10.9 Unspecified abdominal pain; I10 Essential (primary) hypertension; M54.5 Low back pain; F32.9 Major depressive disorder, single episode, unspecified; K21.9 Gastro-esophageal reflux disease without esophagitis; Z93.3 Colostomy status; R74.0 Nonspecific elevation of levels of transaminase and lactic acid dehydrogenase [LDH]
CPT/HCPCS: 36415; 71045-TC-FY; 71275-TC; 74174-TC; 74181-TC; 76705-TC; 78226-TC; 80048; 80053; 80061; 80164; 81003; 82550; 82553; 83605; 83690; 83721; 83735; 83880; 84484; 85025; 85027; 85610; 85730; 86850; 86900; 86901; 93005; 93010; 93306-TC; 97116-GP; 97161-GP; 99284-25; A9537; J1644; J7030

== ENCOUNTER 2020-02-10 19:26 | Emergency (ER) | payer OTHER ==
[2020-02-10 19:35] VITALS: BP 144/92; PULSE 88; TEMP 99.1; BMI 33.3
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
[2020-02-10] MEDS ORDERED: IBUPROFEN 400 MG TABLET (FP) PO ONE ×2 (19:57→19:58)
== END 2020-02-10 20:37 | disposition home or self-care (01) ==
LOC: FER 19:26
DX: S69.92XA Unspecified injury of left wrist, hand and finger(s), initial encounter (principal)
CPT/HCPCS: 73110-TC-LT-FY; 99283-25

== ENCOUNTER 2020-02-19 20:24 | Emergency (ER) | payer OTHER ==
[2020-02-19 20:29] VITALS: BP 129/93; PULSE 95; TEMP 99.1; BMI 33.3
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
[2020-02-19] MEDS ORDERED: KETOROLAC TROMETHAMINE 30 MG/1 ML VIAL IM ONE (20:48)
[2020-02-19] MEDS ORDERED: KETOROLAC TROMETHAMINE 30 MG/1 ML VIAL ONE (20:49)
== END 2020-02-19 21:50 | disposition home or self-care (01) ==
LOC: FER 20:24
PROC: 3E0233Z Introduction of Anti-inflammatory into Muscle, Percutaneous Approach (ICD-10-PCS; principal; 2020-02-19)
DX: S63.502A Unspecified sprain of left wrist, initial encounter (principal)
CPT/HCPCS: 73110-TC-LT-FY; 73130-TC-LT-FY; 99284-25

== ENCOUNTER 2020-03-21 11:46 | Emergency (ER) | payer OTHER | END 2020-03-21 12:20 | disposition home or self-care (01) | LOC: JVIRT 11:46 | DX: U07.1 COVID-19 (principal) | CPT/HCPCS: C9803; Q3014-GT; U0003 ==

== ENCOUNTER 2020-12-17 20:49 | Emergency (ER) | payer OTHER ==
[2020-12-17 20:56] VITALS: BP 130/90; PULSE 126; TEMP 98.3; BMI 36.1
[2020-12-17] MEDS ORDERED: KETOROLAC TROMETHAMINE 60 MG/2 ML VIAL IM ONE (21:09)
[2020-12-17] MEDS ORDERED: KETOROLAC TROMETHAMINE 60 MG/2 ML VIAL ONE (21:11)
[2020-12-17 21:31] LABS: BASO % 0.6 % (0-2.0); EOS % 1.9 % (0-4.5); HEMOGLOBIN 15.8 GM/dl (11.7-16.9); LYMPH % 17.1 % (8-40); MCH 32.7 pg (25.7-33.7); MCHC 34.3 g/dl (32.0-35.9); MEAN CELL VOLUME 95.4 fl (80-96); MONO % 7.7 % (3.8-10.2); NEUT % 72.7 % (42.8-82.8); PLATELET COUNT 198 10^3/uL (134-434); RBC 4.82 M/mm3 (4.00-5.60); RDW 13.1 % (11.9-15.9); WHITE BLOOD COUNT 6.6 K/mm3 (4.0-10.8)
== END 2020-12-17 22:08 | disposition home or self-care (01) ==
LOC: FER 20:49
PROC: 3E0233Z Introduction of Anti-inflammatory into Muscle, Percutaneous Approach (ICD-10-PCS; principal; 2020-12-17)
DX: M10.9 Gout, unspecified (principal)
CPT/HCPCS: 36415; 84550; 85025; 99284-25

== ENCOUNTER 2021-05-13 22:08 | Emergency (ER) | payer OTHER ==
[2021-05-13 22:19] VITALS: BP 124/76; PULSE 90; TEMP 97.8; BMI 36.1
[2021-05-13] MEDS ORDERED: KETOROLAC TROMETHAMINE 60 MG/2 ML VIAL IM ONE (22:36)
[2021-05-13] MEDS ORDERED: KETOROLAC TROMETHAMINE 60 MG/2 ML VIAL ONE (22:39)
[2021-05-13] MEDS ORDERED: ACETAMINOPHEN 1000 MG/100 ML BAG IVPB ONE (23:13)
[2021-05-13] MEDS ORDERED: ACETAMINOPHEN INJECTION 100 ML IVPB ONE (23:13)
== END 2021-05-13 23:43 | disposition home or self-care (01) ==
LOC: FER 22:08
PROC: 3E0233Z Introduction of Anti-inflammatory into Muscle, Percutaneous Approach (ICD-10-PCS; principal; 2021-05-13)
PROC: 3E033GC Introduction of Other Therapeutic Substance into Peripheral Vein, Percutaneous Approach (ICD-10-PCS; 2021-05-13)
DX: M10.9 Gout, unspecified (principal)
CPT/HCPCS: 99283-25; J0131

== ENCOUNTER 2021-05-17 08:35 | Emergency (ER) | payer OTHER ==
[2021-05-17 08:50] VITALS: BP 151/87; PULSE 77; TEMP 98.3; BMI 33.3
[2021-05-17] MEDS ORDERED: predniSONE 20 MG TABLET (UD) PO ONE (08:52)
[2021-05-17] MEDS ORDERED: ACETAMINOPHEN 325 MG TABLET (FP) PO ONE (08:53)
[2021-05-17] MEDS ORDERED: predniSONE 20 MG TABLET (UD) ONE (09:13)
[2021-05-17] MEDS ORDERED: ACETAMINOPHEN 325 MG TABLET (FP) ONE (09:14)
[2021-05-17] MEDS ORDERED: oxyCODONE HCL 5 MG TABLET PO ONE (09:35)
[2021-05-17] MEDS ORDERED: oxyCODONE HCL 5 MG TABLET ONE (09:37)
== END 2021-05-17 09:47 | disposition home or self-care (01) ==
LOC: FER 08:35
DX: M10.072 Idiopathic gout, left ankle and foot (principal)
CPT/HCPCS: 99283-25

== ENCOUNTER 2021-11-22 21:43 | Emergency (ER) | payer OTHER ==
[2021-11-22 21:59] VITALS: BP 130/86; PULSE 95; TEMP 100; BMI 34.0
[2021-11-22] MEDS ORDERED: ACETAMINOPHEN 325 MG TABLET (FP) PO ONE (22:00)
[2021-11-22] MEDS ORDERED: ACETAMINOPHEN 325 MG TABLET (FP) ONE (22:15)
== END 2021-11-22 22:20 | disposition home or self-care (01) ==
LOC: FER 21:43
DX: R50.9 Fever, unspecified (principal); R05.1 Acute cough; R09.81 Nasal congestion; M79.10 Myalgia, unspecified site
CPT/HCPCS: 0241U-QW; 99283-25

== ENCOUNTER 2021-12-04 06:27 | Emergency (ER) | payer OTHER ==
[2021-12-04 06:50] VITALS: TEMP 97.9; BMI 34.0
[2021-12-04 07:45] VITALS: BP 129/88; PULSE 86; RESP 18
== END 2021-12-04 07:45 | disposition home or self-care (01) ==
LOC: FER 06:27
DX: R05.1 Acute cough (principal)
CPT/HCPCS: 71045-TC-FY; 99283-25

== ENCOUNTER 2022-03-25 23:55 | Emergency (ER) | payer OTHER ==
[2022-03-26] MEDS ORDERED: COLCHICINE 0.6 MG CAP PO ONE
[2022-03-26] MEDS ORDERED: INDOMETHACIN 50 MG CAPSULE PO ONE
[2022-03-26] MEDS ORDERED: ALLOPURINOL 300 MG TABLET (FP) PO ONE
[2022-03-26 00:01] VITALS: BP 136/77; PULSE 82; RESP 18; TEMP 98.2; BMI 34.2
[2022-03-26] MEDS ORDERED: INDOMETHACIN 25 MG CAPSULE ONE (00:03)
[2022-03-26] MEDS ORDERED: COLCHICINE 0.6 MG CAPSULE ONE (00:03)
== END 2022-03-26 00:13 | disposition home or self-care (01) ==
LOC: FER 23:55
DX: M10.9 Gout, unspecified (principal)
CPT/HCPCS: 99283-25